=== PATIENT | male | born 1945 | race Caucasian/White ===

== ENCOUNTER 2016-12-31 05:46 | Inpatient (IN) | payer MEDICARE ==
[~2016-12-31] VITALS: Ht 177.8 cm; Wt 142.9 kg
[~2016-12-31 05:46] MED LIST: AMLO5TAB2 PO; ASPI-482 PO; ATOR20TA58 PO; BENA40TA2 PO; GLIM4TAB2 PO; METF500T4 PO
--- NOTE | 2016-12-31 06:10 | RAD ---
RS Compliance Statement: One or more of the following individualized dose reduction techniques were utilized for this examination: 1. Automated exposure control 2. Adjustment of the mA and/or kV according to patient size 3. Use of iterative reconstruction technique CT head without contrast 12/31/2016 5:52 AM INDICATION: Left-sided weakness. COMPARISON: CT head 12/29/2016 TECHNIQUE: Multiple axial CT images of the head were obtained from skull base through the vertex without intravenous contrast. FINDINGS: Head: Ventricles, sulci and basal cisterns are within normal limits. There is no hydrocephalus. Ch[place]-white matter differentiation is normal. There is no acute intracranial hemorrhage. There is no mass, mass effect or midline shift. Posterior fossa is normal in appearance. Visualized portions of the orbits are normal. Paranasal sinuses are well aerated. Mastoid air cells are well aerated. Scalp and calvaria are normal. IMPRESSION: No acute intracranial hemorrhage. Electronically signed by: Renea Haddad MD (12/31/2016 6:07 AM) [id number]
[2016-12-31 06:33] LABS: BASO # 0.1 x10^3/uL (0.0-0.2); BASO % 1 % (0-3); EOS % 5 % (0-3); HEMATOCRIT 48.1 % (39.0-53.0); HEMOGLOBIN 15.8 g/dL (13.0-17.5); LYMPH % 17 % (24-48); MEAN CORPUSCULAR HEMOGLOBIN 29 pg (25-35); MEAN CORPUSCULAR HGB CONC 33 g/dL (31-37); MEAN CORPUSCULAR VOLUME 88 fL (79-100); MONO % 8 % (0-9); NEUT % 70 % (31-73); PLATELET COUNT 334 x10^3/uL (140-400); RED BLOOD COUNT 5.46 x10^6/uL (4.30-5.70); RED CELL DISTRIBUTION WIDTH 13.5 % (11.5-14.5); WHITE BLOOD COUNT 11.9 x10^3/uL (4.0-11.0)
[2016-12-31 06:44] LABS: CALCIUM 9.4 mg/dL (8.5-10.1); CREATININE 1.1 mg/dL (0.7-1.3); GFR 65.6; POTASSIUM 3.9 mmol/L (3.5-5.1)
[2016-12-31 06:49] LABS: ALBUMIN 3.5 g/dL (3.4-5.0); ALBUMIN/GLOBULIN RATIO 0.8 (1.0-1.7); TOTAL BILIRUBIN 0.4 mg/dL (0.2-1.0); TOTAL PROTEIN 7.7 g/dL (6.4-8.2)
[2016-12-31 06:52] LABS: BILIRUBIN,URINE NEGATIVE (NEG); GLUCOSE,URINE NEGATIVE (NEG); NITRITE,URINE NEGATIVE (NEG); PROTEIN,URINE NEGATIVE (NEG-TRACE); UROBILINOGEN,URINE 0.2 mg/dL (0.2 mg/dL)
--- NOTE | 2016-12-31 06:55 | EKG ---
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
[2016-12-31] MEDS ORDERED: ASPIRIN CHEWABLE 81 MG TABLET. PO ONE (07:00)
[2016-12-31 07:01] LABS: WBC,URINE OCC /HPF (0-4)
[2016-12-31 07:01] LABS: INR 1.1 (0.8-1.1); PROTHROMBIN TIME PATIENT 13.1 SEC (11.7-14.0)
[2016-12-31 07:02] LABS: BACTERIA,URINE 0 /HPF (0-FEW); RBC,URINE 0 /HPF (0-2)
--- NOTE | 2016-12-31 07:04 | PHYS DOC ---
Past Medical History Past Medical History: Diabetes-Type II, Hypertension, TIA Past Surgical History: Hip Replacement Alcohol Use: None Drug Use: None Adult General Chief Complaint Chief Complaint: WEAKNESS/GENERALIZED HPI HPI Patient is a 71 year old male released from this hospital yesterday and diagnosed with CVA and carotid stenosis who presents with return of neurologic deficits. Patient states weakness of his left hand and leg on Saturday. While in ER those symptoms fully resolved. The patient was subsequently admitted to the hospital overnight and released yesterday. While hospital, patient had echocardiogram imaging of his carotid arteries which showed partial blockage. The patient states he normal and is overnight hospital stay and at time of discharge last evening. states he felt normal when going to bed at 2300 awoke with symptoms involving left hand and foot this morning. Symptoms are less severe than they were days ago. Patient last took aspirin 12 hours ago. No other acute symptoms or complaints. Review of Systems Review of Systems ROS as per HPI All other systems were reviewed and found to be within normal limits, except as documented in this note. Current Medications Current Medications Current Medications Medications (Trade) Dose Ordered Sig/Lily Start Time Stop Time Status Last Admin Dose Admin Aspirin (Children'S Aspirin) 162 mg 1X ONCE 12/31/16 07:00 12/31/16 07:01 Allergies Allergies Allergies Coded Allergies Type Severity Reaction Last Updated Verified No Known Drug Allergies 12/29/16 No Physical Exam Physical Exam Constitutional: Well developed, well nourished, no acute distress, non-toxic appearance. [] HENT: Normocephalic, atraumatic, bilateral external ears normal, oropharynx moist, no oral exudates, nose normal. [] Eyes: PERRLA, EOMI, conjunctiva normal, no discharge. [] Neck: Normal range of motion, no tenderness, supple, no stridor. [] Cardiovascular:Heart rate regular rhythm, no murmur [] Lungs & Thorax: Bilateral breath sounds clear to auscultation [] Abdomen: Bowel sounds normal, soft, no tenderness, no masses, no pulsatile masses. [] Skin: Warm, dry, no erythema, no rash. [] Back: No tenderness, no CVA tenderness. [] Extremities: No tenderness, no cyanosis, no clubbing, ROM intact, no edema. [] Neurologic: Alert and oriented X 3, CN 2-12 grossly intact, normal motor function, normal sensory function, no focal deficits noted. [] Psychologic: Affect normal, judgement normal, mood normal. [] Current Patient Data Vital Signs Vital Signs Date Time Temp Pulse Resp B/P (MAP) Pulse Ox O2 Delivery O2 Flow Rate FiO2 12/31/16 06:00 97.8 86 18 183/88 (119) 96 Room Air 97.8 Lab Values Laboratory Tests Test 12/31/16 06:15 White Blood Count 11.9 x10^3/uL (4.0-11.0) H Red Blood Count 5.46 x10^6/uL (4.30-5.70) Hemoglobin 15.8 g/dL (13.0-17.5) Hematocrit 48.1 % (39.0-53.0) Mean Corpuscular Volume 88 fL (79-100) Mean Corpuscular Hemoglobin 29 pg (25-35) Mean Corpuscular Hemoglobin Concent 33 g/dL (31-37) Red Cell Distribution Width 13.5 % (11.5-14.5) Platelet Count 334 x10^3/uL (140-400) Neutrophils (%) (Auto) 70 % (31-73) Lymphocytes (%) (Auto) 17 % (24-48) L Monocytes (%) (Auto) 8 % (0-9) Eosinophils (%) (Auto) 5 % (0-3) H Basophils (%) (Auto) 1 % (0-3) Neutrophils # (Auto) 8.3 x10^3uL (1.8-7.7) H Lymphocytes # (Auto) 2.0 x10^3/uL (1.0-4.8) Monocytes # (Auto) 1.0 x10^3/uL (0.0-1.1) Eosinophils # (Auto) 0.6 x10^3/uL (0.0-0.7) Basophils # (Auto) 0.1 x10^3/uL (0.0-0.2) Sodium Level 140 mmol/L (136-145) Potassium Level 3.9 mmol/L (3.5-5.1) Chloride Level 102 mmol/L (98-107) Carbon Dioxide Level 27 mmol/L (21-32) Anion Gap 11 (6-14) Blood Urea Nitrogen 15 mg/dL (8-26) Creatinine 1.1 mg/dL (0.7-1.3) Estimated GFR (Cockcroft-Gault) 65.6 BUN/Creatinine Ratio 14 (6-20) Glucose Level 159 mg/dL (70-99) H Calcium Level 9.4 mg/dL (8.5-10.1) Total Bilirubin Pending Aspartate Amino Transferase (AST) Pending Alanine Aminotransferase (ALT) Pending Alkaline Phosphatase Pending Total Protein Pending Albumin Pending Albumin/Globulin Ratio Pending Laboratory Tests 12/31/16 06:15 Laboratory Tests 12/31/16 06:15 EKG EKG [EKG: Sinus rhythm, occasional PVC, rate 83, no acute ST-T wave changes, QTC 445. Interpretation by me. ] Radiology/Procedures Radiology/Procedures [CT head: NAD per radiology report.] Course & Med Decision Making Course & Med Decision Making Pertinent Labs and Imaging studies reviewed. (See chart for details) [CT head nonacute. NIH stroke score of 0 on stroke assessment stroke assessment by ER nurse. patient mostly noticed loss of fine motor use of left hand and has difficulty picking up and holding objects in left hand. Aspirin given. Will admit. ] Dragon Disclaimer Dragon Disclaimer This electronic medical record was generated, in whole or in part, using a voice recognition dictation system. Departure Departure Impression: Primary Impression: CVA (cerebral vascular accident) Disposition: 09 ADMITTED INPATIENT Admitting Physician: Other (Dr. Campoverde) Condition: STABLE Referrals: LOS ROJAS (PCP) JACKSON LENZ DO Dec 31, 2016 07:04
[2016-12-31] MEDS ORDERED: ONDANSETRON PF 4 MG/2 ML VIAL. IV PRN (08:00)
[2016-12-31] MEDS: HEPARIN for IV BOLUS 10,000 UNIT/10 ML VIAL. IV PRN ×2 (08:08→23:56)
[2016-12-31] MEDS: HEPARIN 25,000UTS/500ML PREMIX 500 ML IV PRN (08:15)
[2016-12-31 10:00] VITALS: BP 178/87
[2016-12-31 11:00] VITALS: BP 163/85
[2016-12-31 14:30] VITALS: BP 181/94
--- NOTE | 2016-12-31 17:47 | PDOC2 ---
NEUROLOGY CONSULT Date of Admission Date of Admission DATE: 12/31/16 TIME: 17:26 Reason for Consult Reason for Consult: IMPRESSION: Left side weakness. Left side of face numbness. TIA. Carotid A stenosis, right side 75%. HTN HLD. No evidence of acute CVA this time. RECOMMENDATIONS/PLAN: Plavix 75 mg daily. Echo + bubble study. Fasting lipid panel in a.m Consulted Vascular Surgery for ICA stenosis. Discussed in detail with his family at bedside. HISTORY OF THE PRESENT ILLNESS: 71-y-old male patient with hx of HTN and HLD developed symptoms of left side weakness on 12/29/16. His symptoms then resolved. He came to the ER of [facility] and further evaluation revealed moderate to high grade of ICA stenosis. He had brief symptoms of left side numbness on 12/31/16 but resolved briefly. Past Medical History: Diabetes-Type II, Hypertension, TIA Past Surgical History: Hip Replacement ALLERGY: Reviewed. MEDICATIONS: Refer to MAR FAMILY HISTORY: Non contributory. SOCIAL HISTORY: Lives at home. Denies current smoking, drinking, and illicit drug use. REVIEW OF SYSTEMS: Constitutional: No malnutrition, weight loss, cachexia. Head: No traumatic brain or head injury. Skin: No edema, or rash. Ear: No infection. Eyes: No vision loss or color blindness. Nose: No bleeding or purulent discharges. Hearing: No hearing decrease. Neck: No injury. Cardiac: HTN, HLD. Pulmonary: No COPD. GI: No GI ulcer, GI bleeding. Urinary/genital: No dysuria, incontinence, urinary retention. Endocrinologic: No cousin face, craniofacial dysmorphism, polydactyly. Skeletomuscular: No muscular atrophy, deformity. Neurological: see HP. Psychiatric: Denies drug use/abuse. Otherwise, not [id number] review of systems. PHYSICAL EXAMINATION: General appearance is in subacute distress. HEENT: Normocephalic and nontraumatic. Eyes, nose, ears, and throat are unremarkable. Neck is supple. No lymphadenopathy. No crepitus. Cardiovascular: S1, S2, regular rate and rhythm. Pulmonary: Clear to auscultation bilaterally. Abdomen: Bowel sounds are positive. Abdomen is soft, nontender, and nondistended. Extremities: No rash, lesions, or edema. No restriction of range of motion NEUROLOGICAL EXAMINATION: Alert Oriented to time, place and person. PERRL. EOMI. CN: no focal findings. Muscle tone: within normal. Muscle strength: 5 DTR: 2 Plantar reflex: Flexor response bilaterally Gait: not examined in bed. Sensory exam: no abnormal findings. No cerebellar signs elicited. F-T-N test accurate. Current Medications Current Medications Current Medications Aspirin (Children'S Aspirin) 162 mg 1X ONCE PO Last administered on 06:52; Start 12/31/16 at 07:00; Stop 12/31/16 at 07:01; Status DC Ondansetron HCl (Zofran) 4 mg PRN Q8HRS PRN IV NAUSEA/VOMITING; Start at 08:00; Stop 01/01/17 at 07:59 Heparin Sodium/ Dextrose 500 ml @ 0 mls/hr CONT PRN IV SEE I/O RECORD Last administered on 12/31/16 08:15; Start 12/31/16 at 08:00 Heparin Sodium (Porcine) (Heparin Sodium) 3,650 unit PRN Q6HRS PRN IV FOR UFH LEVEL LESS THAN 0.2 Last administered on 12/31/16 08:08; Start 12/31/16 at 08 :00 Atorvastatin Calcium (Lipitor) 20 mg QHS PO ; Start 12/31/16 at 21:00 Active Scripts Active Aspir 81 (Aspirin) 81 Mg Tablet.dr 1 Tab PO DAILY Reported Metformin Hcl 500 Mg Tablet 500 Mg PO BIDWMEALS Glimepiride 4 Mg Tablet 1 Tab PO DAILY Benazepril Hcl 40 Mg Tablet 1 Tab PO DAILY Amlodipine Besylate 5 Mg Tablet 5 Mg PO DAILY Allergies Allergies: Coded Allergies: No Known Drug Allergies (Unverified , 12/29/16) Vitals VITALS Vital Signs Date Time Temp Pulse Resp B/P (MAP) Pulse Ox O2 Delivery O2 Flow Rate FiO2 12/31/16 14:30 97.4 86 20 181/94 (123) 95 Room Air 97.4 Labs Labs Laboratory Tests Test 12/31/16 06:15 12/31/16 06:37 12/31/16 13:50 White Blood Count 11.9 x10^3/uL (4.0-11.0) Red Blood Count 5.46 x10^6/uL (4.30-5.70) Hemoglobin 15.8 g/dL (13.0-17.5) Hematocrit 48.1 % (39.0-53.0) Mean Corpuscular Volume 88 fL (79-100) Mean Corpuscular Hemoglobin 29 pg (25-35) Mean Corpuscular Hemoglobin Concent 33 g/dL (31-37) Red Cell Distribution Width 13.5 % (11.5-14.5) Platelet Count 334 x10^3/uL (140-400) Neutrophils (%) (Auto) 70 % (31-73) Lymphocytes (%) (Auto) 17 % (24-48) Monocytes (%) (Auto) 8 % (0-9) Eosinophils (%) (Auto) 5 % (0-3) Basophils (%) (Auto) 1 % (0-3) Neutrophils # (Auto) 8.3 x10^3uL (1.8-7.7) Lymphocytes # (Auto) 2.0 x10^3/uL (1.0-4.8) Monocytes # (Auto) 1.0 x10^3/uL (0.0-1.1) Eosinophils # (Auto) 0.6 x10^3/uL (0.0-0.7) Basophils # (Auto) 0.1 x10^3/uL (0.0-0.2) Prothrombin Time 13.1 SEC (11.7-14.0) Prothromb Time International Ratio 1.1 (0.8-1.1) Activated Partial Thromboplast Time 29 SEC (24-38) Sodium Level 140 mmol/L (136-145) Potassium Level 3.9 mmol/L (3.5-5.1) Chloride Level 102 mmol/L (98-107) Carbon Dioxide Level 27 mmol/L (21-32) Anion Gap 11 (6-14) Blood Urea Nitrogen 15 mg/dL (8-26) Creatinine 1.1 mg/dL (0.7-1.3) Estimated GFR (Cockcroft-Gault) 65.6 BUN/Creatinine Ratio 14 (6-20) Glucose Level 159 mg/dL (70-99) Calcium Level 9.4 mg/dL (8.5-10.1) Total Bilirubin 0.4 mg/dL (0.2-1.0) Aspartate Amino Transf (AST/SGOT) 17 U/L (15-37) Alanine Aminotransferase (ALT/SGPT) 19 U/L (16-63) Alkaline Phosphatase 96 U/L (46-116) Troponin I Quantitative < 0.017 ng/mL (0.000-0.055) Total Protein 7.7 g/dL (6.4-8.2) Albumin 3.5 g/dL (3.4-5.0) Albumin/Globulin Ratio 0.8 (1.0-1.7) Thyroid Stimulating Hormone (TSH) 2.172 uIU/mL (0.358-3.74) Urine Collection Type Unknown Urine Color Yellow Urine Clarity Clear Urine pH 6.0 Urine Specific [place] 1.010 Urine Protein Negative mg/dL (NEG-TRACE) Urine Glucose (UA) Negative mg/dL (NEG) Urine Ketones (Stick) Negative mg/dL (NEG) Urine Blood Negative (NEG) Urine Nitrite Negative (NEG) Urine Bilirubin Negative (NEG) Urine Urobilinogen Dipstick 0.2 mg/dL (0.2 mg/dL) Urine Leukocyte Esterase Negative (NEG) Urine RBC 0 /HPF (0-2) Urine WBC Occ /HPF (0-4) Urine Bacteria 0 /HPF (0-FEW) Urine Mucus Mod /LPF Heparin Anti-Xa Act, Unfractionated 0.25 IU/mL (0.30-0.70) Laboratory Tests Test 12/31/16 06:15 12/31/16 06:37 12/31/16 13:50 White Blood Count 11.9 x10^3/uL (4.0-11.0) Red Blood Count 5.46 x10^6/uL (4.30-5.70) Hemoglobin 15.8 g/dL (13.0-17.5) Hematocrit 48.1 % (39.0-53.0) Mean Corpuscular Volume 88 fL (79-100) Mean Corpuscular Hemoglobin 29 pg (25-35) Mean Corpuscular Hemoglobin Concent 33 g/dL (31-37) Red Cell Distribution Width 13.5 % (11.5-14.5) Platelet Count 334 x10^3/uL (140-400) Neutrophils (%) (Auto) 70 % (31-73) Lymphocytes (%) (Auto) 17 % (24-48) Monocytes (%) (Auto) 8 % (0-9) Eosinophils (%) (Auto) 5 % (0-3) Basophils (%) (Auto) 1 % (0-3) Neutrophils # (Auto) 8.3 x10^3uL (1.8-7.7) Lymphocytes # (Auto) 2.0 x10^3/uL (1.0-4.8) Monocytes # (Auto) 1.0 x10^3/uL (0.0-1.1) Eosinophils # (Auto) 0.6 x10^3/uL (0.0-0.7) Basophils # (Auto) 0.1 x10^3/uL (0.0-0.2) Prothrombin Time 13.1 SEC (11.7-14.0) Prothromb Time International Ratio 1.1 (0.8-1.1) Activated Partial Thromboplast Time 29 SEC (24-38) Sodium Level 140 mmol/L (136-145) Potassium Level 3.9 mmol/L (3.5-5.1) Chloride Level 102 mmol/L (98-107) Carbon Dioxide Level 27 mmol/L (21-32) Anion Gap 11 (6-14) Blood Urea Nitrogen 15 mg/dL (8-26) Creatinine 1.1 mg/dL (0.7-1.3) Estimated GFR (Cockcroft-Gault) 65.6 BUN/Creatinine Ratio 14 (6-20) Glucose Level 159 mg/dL (70-99) Calcium Level 9.4 mg/dL (8.5-10.1) Total Bilirubin 0.4 mg/dL (0.2-1.0) Aspartate Amino Transf (AST/SGOT) 17 U/L (15-37) Alanine Aminotransferase (ALT/SGPT) 19 U/L (16-63) Alkaline Phosphatase 96 U/L (46-116) Troponin I Quantitative < 0.017 ng/mL (0.000-0.055) Total Protein 7.7 g/dL (6.4-8.2) Albumin 3.5 g/dL (3.4-5.0) Albumin/Globulin Ratio 0.8 (1.0-1.7) Thyroid Stimulating Hormone (TSH) 2.172 uIU/mL (0.358-3.74) Urine Collection Type Unknown Urine Color Yellow Urine Clarity Clear Urine pH 6.0 Urine Specific [place] 1.010 Urine Protein Negative mg/dL (NEG-TRACE) Urine Glucose (UA) Negative mg/dL (NEG) Urine Ketones (Stick) Negative mg/dL (NEG) Urine Blood Negative (NEG) Urine Nitrite Negative (NEG) Urine Bilirubin Negative (NEG) Urine Urobilinogen Dipstick 0.2 mg/dL (0.2 mg/dL) Urine Leukocyte Esterase Negative (NEG) Urine RBC 0 /HPF (0-2) Urine WBC Occ /HPF (0-4) Urine Bacteria 0 /HPF (0-FEW) Urine Mucus Mod /LPF Heparin Anti-Xa Act, Unfractionated 0.25 IU/mL (0.30-0.70) SHANA LIMON MD Dec 31, 2016 17:47
[2016-12-31] MEDS: CLOPIDOGREL BISULFATE 75 MG TABLET PO SCH (18:00)
[2016-12-31] MEDS ORDERED: DEXTROSE 50% 25 GM / 50ML DISP.SYRIN. IV PRN (18:45)
--- NOTE | 2016-12-31 18:52 | HP ---
ADMIT DATE: 12/31/2016 CHIEF COMPLAINT: Left arm weakness. HISTORY OF PRESENT ILLNESS: The patient is a massively obese 71-year-old gentleman with past medical history of hypertension, hyperlipidemia as well as TIA symptoms for which he had been admitted on 12/29/2016. The symptoms spontaneously resolved and he was discharged just yesterday only for the symptoms to return today and he returned to the hospital. He had been seen by Dr. Tubbs during his previous hospitalization and was about to get scheduled for a CEA due to carotid artery stenosis on the right at 75%. PAST MEDICAL HISTORY: TIA, hypertension, hyperlipidemia, diabetes mellitus, morbid obesity. FAMILY HISTORY: No disorders known. SOCIAL HISTORY: He is , living with his . Denies any toxic habits. ALLERGIES: No known drug allergies. MEDICATIONS: MAR reconciled with home medications. REVIEW OF SYSTEMS: His arm weakness has mostly resolved. 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 Strength is restored. He denies any other symptoms at this time. PHYSICAL EXAMINATION: VITAL SIGNS: From today show a blood pressure of 178/87, heart rate of 71, respiratory rate at 19. He is afebrile. GENERAL: This is a massively obese 71-year-old gentleman, awake, alert, in no acute distress. HEENT: Shows no scleral icterus. NECK: Supple. LUNGS: Clear. HEART: Regular rate and rhythm. ABDOMEN: Obese, positive bowel sounds. EXTREMITIES: Show no edema. SKIN: Warm, soft and dry. NEUROLOGIC: He has 5/5 strength in both upper extremities. Sensation to soft touch is intact. LABORATORY DATA: CBC with a WBC of 11.9, hemoglobin 15.8 with a platelet count of 334. Chemistries with a BUN and creatinine of 15 and 1.1, normal electrolytes, normal LFTs, normal CK. Albumin at 3.5 and glucose at 159. IMAGING: CT of the head obtained in the Emergency Room shows no acute intracranial hemorrhage. ASSESSMENT AND PLAN: The patient is a 71-year-old gentleman with recurrent transient ischemic attack symptoms in the left arm. He has been started on heparin drip for the time being. Neurology has been consulted as well as Vascular Surgery, Dr. Tubbs, who had seen him during his previous hospitalization. We will continue home medications for the time being, add insulin sliding scale to his diabetic regimen. Blood pressure currently is very poorly controlled. We will add hydralazine IV p.r.n. for the time being to his home regimen. JOELLE DEMARCO MD DR: UR/nts JOB#: [id number] / [id number] BIANCA
[2016-12-31 19:00] VITALS: BP 188/88
--- NOTE | 2016-12-31 19:55 | PDOC ---
SURGICAL PROGRESS NOTE Subjective pt had second episode of left hand discoordination at 5 am today prompting readmission. Strength is good but dexterity not normal Vital Signs Vital Signs Date Time Temp Pulse Resp B/P (MAP) Pulse Ox O2 Delivery O2 Flow Rate FiO2 12/31/16 14:30 97.4 86 20 181/94 (123) 95 Room Air 97.4 Neuro: Other (equal printing estimator strength, some impairment of dexterity) Labs Laboratory Tests Test 12/31/16 06:15 12/31/16 06:37 12/31/16 13:50 White Blood Count 11.9 x10^3/uL (4.0-11.0) Red Blood Count 5.46 x10^6/uL (4.30-5.70) Hemoglobin 15.8 g/dL (13.0-17.5) Hematocrit 48.1 % (39.0-53.0) Mean Corpuscular Volume 88 fL (79-100) Mean Corpuscular Hemoglobin 29 pg (25-35) Mean Corpuscular Hemoglobin Concent 33 g/dL (31-37) Red Cell Distribution Width 13.5 % (11.5-14.5) Platelet Count 334 x10^3/uL (140-400) Neutrophils (%) (Auto) 70 % (31-73) Lymphocytes (%) (Auto) 17 % (24-48) Monocytes (%) (Auto) 8 % (0-9) Eosinophils (%) (Auto) 5 % (0-3) Basophils (%) (Auto) 1 % (0-3) Neutrophils # (Auto) 8.3 x10^3uL (1.8-7.7) Lymphocytes # (Auto) 2.0 x10^3/uL (1.0-4.8) Monocytes # (Auto) 1.0 x10^3/uL (0.0-1.1) Eosinophils # (Auto) 0.6 x10^3/uL (0.0-0.7) Basophils # (Auto) 0.1 x10^3/uL (0.0-0.2) Prothrombin Time 13.1 SEC (11.7-14.0) Prothromb Time International Ratio 1.1 (0.8-1.1) Activated Partial Thromboplast Time 29 SEC (24-38) Sodium Level 140 mmol/L (136-145) Potassium Level 3.9 mmol/L (3.5-5.1) Chloride Level 102 mmol/L (98-107) Carbon Dioxide Level 27 mmol/L (21-32) Anion Gap 11 (6-14) Blood Urea Nitrogen 15 mg/dL (8-26) Creatinine 1.1 mg/dL (0.7-1.3) Estimated GFR (Cockcroft-Gault) 65.6 BUN/Creatinine Ratio 14 (6-20) Glucose Level 159 mg/dL (70-99) Calcium Level 9.4 mg/dL (8.5-10.1) Total Bilirubin 0.4 mg/dL (0.2-1.0) Aspartate Amino Transf (AST/SGOT) 17 U/L (15-37) Alanine Aminotransferase (ALT/SGPT) 19 U/L (16-63) Alkaline Phosphatase 96 U/L (46-116) Troponin I Quantitative < 0.017 ng/mL (0.000-0.055) Total Protein 7.7 g/dL (6.4-8.2) Albumin 3.5 g/dL (3.4-5.0) Albumin/Globulin Ratio 0.8 (1.0-1.7) Thyroid Stimulating Hormone (TSH) 2.172 uIU/mL (0.358-3.74) Urine Collection Type Unknown Urine Color Yellow Urine Clarity Clear Urine pH 6.0 Urine Specific [place] 1.010 Urine Protein Negative mg/dL (NEG-TRACE) Urine Glucose (UA) Negative mg/dL (NEG) Urine Ketones (Stick) Negative mg/dL (NEG) Urine Blood Negative (NEG) Urine Nitrite Negative (NEG) Urine Bilirubin Negative (NEG) Urine Urobilinogen Dipstick 0.2 mg/dL (0.2 mg/dL) Urine Leukocyte Esterase Negative (NEG) Urine RBC 0 /HPF (0-2) Urine WBC Occ /HPF (0-4) Urine Bacteria 0 /HPF (0-FEW) Urine Mucus Mod /LPF Heparin Anti-Xa Act, Unfractionated 0.25 IU/mL (0.30-0.70) Laboratory Tests Test 12/31/16 06:15 12/31/16 06:37 12/31/16 13:50 White Blood Count 11.9 x10^3/uL (4.0-11.0) Red Blood Count 5.46 x10^6/uL (4.30-5.70) Hemoglobin 15.8 g/dL (13.0-17.5) Hematocrit 48.1 % (39.0-53.0) Mean Corpuscular Volume 88 fL (79-100) Mean Corpuscular Hemoglobin 29 pg (25-35) Mean Corpuscular Hemoglobin Concent 33 g/dL (31-37) Red Cell Distribution Width 13.5 % (11.5-14.5) Platelet Count 334 x10^3/uL (140-400) Neutrophils (%) (Auto) 70 % (31-73) Lymphocytes (%) (Auto) 17 % (24-48) Monocytes (%) (Auto) 8 % (0-9) Eosinophils (%) (Auto) 5 % (0-3) Basophils (%) (Auto) 1 % (0-3) Neutrophils # (Auto) 8.3 x10^3uL (1.8-7.7) Lymphocytes # (Auto) 2.0 x10^3/uL (1.0-4.8) Monocytes # (Auto) 1.0 x10^3/uL (0.0-1.1) Eosinophils # (Auto) 0.6 x10^3/uL (0.0-0.7) Basophils # (Auto) 0.1 x10^3/uL (0.0-0.2) Prothrombin Time 13.1 SEC (11.7-14.0) Prothromb Time International Ratio 1.1 (0.8-1.1) Activated Partial Thromboplast Time 29 SEC (24-38) Sodium Level 140 mmol/L (136-145) Potassium Level 3.9 mmol/L (3.5-5.1) Chloride Level 102 mmol/L (98-107) Carbon Dioxide Level 27 mmol/L (21-32) Anion Gap 11 (6-14) Blood Urea Nitrogen 15 mg/dL (8-26) Creatinine 1.1 mg/dL (0.7-1.3) Estimated GFR (Cockcroft-Gault) 65.6 BUN/Creatinine Ratio 14 (6-20) Glucose Level 159 mg/dL (70-99) Calcium Level 9.4 mg/dL (8.5-10.1) Total Bilirubin 0.4 mg/dL (0.2-1.0) Aspartate Amino Transf (AST/SGOT) 17 U/L (15-37) Alanine Aminotransferase (ALT/SGPT) 19 U/L (16-63) Alkaline Phosphatase 96 U/L (46-116) Troponin I Quantitative < 0.017 ng/mL (0.000-0.055) Total Protein 7.7 g/dL (6.4-8.2) Albumin 3.5 g/dL (3.4-5.0) Albumin/Globulin Ratio 0.8 (1.0-1.7) Thyroid Stimulating Hormone (TSH) 2.172 uIU/mL (0.358-3.74) Urine Collection Type Unknown Urine Color Yellow Urine Clarity Clear Urine pH 6.0 Urine Specific [place] 1.010 Urine Protein Negative mg/dL (NEG-TRACE) Urine Glucose (UA) Negative mg/dL (NEG) Urine Ketones (Stick) Negative mg/dL (NEG) Urine Blood Negative (NEG) Urine Nitrite Negative (NEG) Urine Bilirubin Negative (NEG) Urine Urobilinogen Dipstick 0.2 mg/dL (0.2 mg/dL) Urine Leukocyte Esterase Negative (NEG) Urine RBC 0 /HPF (0-2) Urine WBC Occ /HPF (0-4) Urine Bacteria 0 /HPF (0-FEW) Urine Mucus Mod /LPF Heparin Anti-Xa Act, Unfractionated 0.25 IU/mL (0.30-0.70) I have reviewed the following prior tests reviewed. Pt has >70% right ICA stenosis Assessment/Plan Imp: 1. possible minor right hemisphere stroke with mild deficit left hand 2. right carotid stenosis, >70% 3. obesity Rec: check MRI 2. schedule right carotid endarterectomy for tomorrow. (was scheduled for Saturday) He will be added on to the schedule. Problems: EVERETTE QUEEN II, MD Dec 31, 2016 19:55
[2016-12-31] MEDS: ATORVASTATIN CALCIUM 20 MG TABLET PO SCH (21:52)
[2016-12-31] MEDS: hydrALAZINE 20 MG/ML VIAL. IVP PRN (21:53)
[2016-12-31 23:52] VITALS: BP 170/75
[2017-01-01] MEDS: HEPARIN 25,000UTS/500ML PREMIX 500 ML IV PRN ×2 (02:53→17:34)
[2017-01-01 03:00] VITALS: BP 144/77
[2017-01-01 06:06] LABS: BASO # 0.1 x10^3/uL (0.0-0.2); BASO % 1 % (0-3); EOS % 4 % (0-3); HEMATOCRIT 46.4 % (39.0-53.0); HEMOGLOBIN 15.5 g/dL (13.0-17.5); LYMPH # 2.4 x10^3/uL (1.0-4.8); LYMPH % 23 % (24-48); MEAN CORPUSCULAR HEMOGLOBIN 29 pg (25-35); MEAN CORPUSCULAR HGB CONC 33 g/dL (31-37); MEAN CORPUSCULAR VOLUME 88 fL (79-100); MONO % 10 % (0-9); NEUT % 62 % (31-73); PLATELET COUNT 324 x10^3/uL (140-400); RED BLOOD COUNT 5.25 x10^6/uL (4.30-5.70); RED CELL DISTRIBUTION WIDTH 13.8 % (11.5-14.5); WHITE BLOOD COUNT 10.7 x10^3/uL (4.0-11.0)
[2017-01-01 06:10] LABS: CALCIUM 9.3 mg/dL (8.5-10.1); CREATININE 1.1 mg/dL (0.7-1.3); GFR 65.6; POTASSIUM 3.6 mmol/L (3.5-5.1)
[2017-01-01 06:27] LABS: CHOLESTEROL/HDL RATIO 3.9
[2017-01-01 07:00] VITALS: BP 174/80
[2017-01-01] MEDS: metFORMIN 500 MG TABLET PO SCH ×2 (08:00→17:25)
[2017-01-01] MEDS: CLOPIDOGREL BISULFATE 75 MG TABLET PO SCH (08:00)
[2017-01-01] MEDS: INSULIN ASPART 300 UNITS/3 ML INSULN.PEN SQ SCH ×3 (08:00→17:00)
[2017-01-01] MEDS: GLIMEPIRIDE 2 MG TABLET. PO SCH (09:00)
[2017-01-01] MEDS ORDERED: amLODIPine BESYLATE 5 MG TABLET PO SCH (09:00)
[2017-01-01] MEDS: LISINOPRIL 40 MG TABLET. PO SCH (09:00)
[2017-01-01] MEDS ORDERED: HEPARIN SODIUM 5,000 UNIT in IV RINGERS,LACTATED 500ML 500 ML IRR ONE (10:00)
[2017-01-01] MEDS ORDERED: LIDOCAINE 1% PF 48 ML, SODIUM BICARBONATE VIAL 12 MEQ in TOTAL VOLUME SYRINGE 0 ML ID ONE (10:00)
--- NOTE | 2017-01-01 10:59 | PDOC ---
PROGRESS NOTES Chief Complaint Chief Complaint Recurrent L arm weakness ASSESSMENT AND PLAN: 1. TIA/CVA: recurrent sx on added ASA. MRI with small, acute CVA in R posterior basal ganglia. remains on heparin for now, cont other 2ary prevention meds. will need complete W/U for CVA 2. Carotid artery stenosis: plan for CEA postponed in face of acute CVA 3. DM2: well controlled on home regimen, ISS 4. HTN: poorly controlled on lisinopril and norvasc. add BB - postpone til after surgery. hydralazine PRN History of Present Illness History of Present Illness fine motor weakness in L hand persisting Vitals Vitals Vital Signs Date Time Temp Pulse Resp B/P (MAP) Pulse Ox O2 Delivery O2 Flow Rate FiO2 01/01/17 09:00 78 174/80 01/01/17 08:00 Room Air 01/01/17 07:00 97.7 20 94 97.7 Physical Exam General: Alert, Oriented X3, Cooperative, No acute distress Heart: Regular rate Lungs: Clear Abdomen: Normal bowel sounds, No tenderness, Other (obese) Extremities: No edema Skin: No rashes Labs LABS Laboratory Tests Test 12/31/16 13:50 12/31/16 20:10 12/31/16 21:50 01/01/17 05:30 Heparin Anti-Xa Act, Unfractionated 0.25 IU/mL (0.30-0.70) 0.13 IU/mL (0.30-0.70) 0.29 IU/mL (0.30-0.70) Glucose (Fingerstick) 155 mg/dL (70-99) White Blood Count 10.7 x10^3/uL (4.0-11.0) Red Blood Count 5.25 x10^6/uL (4.30-5.70) Hemoglobin 15.5 g/dL (13.0-17.5) Hematocrit 46.4 % (39.0-53.0) Mean Corpuscular Volume 88 fL (79-100) Mean Corpuscular Hemoglobin 29 pg (25-35) Mean Corpuscular Hemoglobin Concent 33 g/dL (31-37) Red Cell Distribution Width 13.8 % (11.5-14.5) Platelet Count 324 x10^3/uL (140-400) Neutrophils (%) (Auto) 62 % (31-73) Lymphocytes (%) (Auto) 23 % (24-48) Monocytes (%) (Auto) 10 % (0-9) Eosinophils (%) (Auto) 4 % (0-3) Basophils (%) (Auto) 1 % (0-3) Neutrophils # (Auto) 6.7 x10^3uL (1.8-7.7) Lymphocytes # (Auto) 2.4 x10^3/uL (1.0-4.8) Monocytes # (Auto) 1.0 x10^3/uL (0.0-1.1) Eosinophils # (Auto) 0.5 x10^3/uL (0.0-0.7) Basophils # (Auto) 0.1 x10^3/uL (0.0-0.2) Sodium Level 140 mmol/L (136-145) Potassium Level 3.6 mmol/L (3.5-5.1) Chloride Level 103 mmol/L (98-107) Carbon Dioxide Level 28 mmol/L (21-32) Anion Gap 9 (6-14) Blood Urea Nitrogen 14 mg/dL (8-26) Creatinine 1.1 mg/dL (0.7-1.3) Estimated GFR (Cockcroft-Gault) 65.6 Glucose Level 162 mg/dL (70-99) Calcium Level 9.3 mg/dL (8.5-10.1) Triglycerides Level 91 mg/dL (0-150) Cholesterol Level 174 mg/dL (0-200) LDL Cholesterol, Calculated 111 mg/dL (0-100) VLDL Cholesterol, Calculated 18 mg/dL (0-40) Non-HDL Cholesterol Calculated 129 mg/dL (0-129) HDL Cholesterol 45 mg/dL (40-60) Cholesterol/HDL Ratio 3.9 JOELLE DEMARCO MD Jan 01, 2017 10:59
[2017-01-01 11:00] VITALS: BP 168/79
[2017-01-01] MEDS: METOPROLOL TART IMMED RELEASE 25 MG TABLET. PO SCH ×2 (11:00→20:18)
[2017-01-01] MEDS: hydrALAZINE 20 MG/ML VIAL. IVP PRN (11:25)
--- NOTE | 2017-01-01 13:23 | RAD ---
MRI Brain without contrast History: New stroke symptoms with left-sided weakness Technique: Multiplanar, multisequential noncontrast MR imaging was performed of the brain. Contrast: None Comparison: December 30, 2016 Findings: There has been development of approximate 1.8 cm AP by 1.3 cm transverse focus of restricted diffusion involving the posterior right basal ganglia extending to the margin of the right lateral ventricle. There is corresponding mild T2 and FLAIR hyperintense signal. There is no hemosiderin deposition of the brain parenchyma. There are again several other scattered tiny foci of T2 and FLAIR hyperintense abnormality of the supratentorial white matter bilaterally. There is preservation of the major arterial intracranial flow voids at the skull base. There is patchy mild ethmoid air cell mucosal thickening, negligible patchy right frontal sinus mucosal thickening. Impression: 1. There is new small acute infarct of the posterior right basal ganglia extending to the margin of the right lateral ventricle. 2. Other minimal T2 and FLAIR hyperintense abnormality of the supratentorial white matter is nonspecific, probably due to chronic microvascular ischemic disease. FOR INTERNAL CODING PURPOSES Critical result: Findings discussed with Dr. Mahoney at 01/01/2017 1:18 PM. RESULT CODE: (C) Electronically signed by: René Church MD (01/01/2017 1:20 PM) [id number]
[2017-01-01] MEDS ORDERED: IV RINGERS,LACTATED 1000ML 1,000 ML IV SCH (14:27)
[2017-01-01] MEDS ORDERED: LIDOCAINE 1% PF 2 ML VIAL. ID PRN (14:30)
[2017-01-01] MEDS ORDERED: HYDROmorphone 2 MG/ML VIAL IV PRN (14:30)
[2017-01-01] MEDS ORDERED: MORPHINE SULFATE 4 MG/ML DISP.SYRIN. IV PRN (14:30)
[2017-01-01] MEDS ORDERED: MORPHINE SULFATE 2 MG/ML DISP.SYRIN. IV PRN (14:30)
[2017-01-01] MEDS ORDERED: fentaNYL PF VIAL 100 MCG/2 ML VIAL IV PRN ×2 (14:30)
[2017-01-01] MEDS ORDERED: PROCHLORPERAZINE 10 MG/2 ML VIAL. IV PRN (14:30)
[2017-01-01] MEDS ORDERED: ONDANSETRON PF 4 MG/2 ML VIAL. IV PRN (14:30)
[2017-01-01 15:00] VITALS: BP 156/85
--- NOTE | 2017-01-01 17:16 | RAD ---
Carotid ultrasound, 01/01/2017: History: Right carotid stenosis Duplex evaluation of the main renal arteries was performed including grayscale, color-flow and spectral Doppler analysis. There is mild atherosclerotic plaquing at the carotid bifurcations, right greater than left. The right plaques are partially calcified. The internal carotid arteries are tortuous. The peak systolic velocity in the right internal carotid artery is 80 cm per sec with an end-diastolic velocity of 20 cm/s. The internal carotid to common carotid artery ratio is 0.74. The Doppler findings suggest narrowing in the 0-50% diameter range. On the left, the peak systolic velocity in the internal carotid artery is 76 cm/s with an end-diastolic velocity of 18 cm/s. The internal carotid to common carotid artery ratio is 1.2. These Doppler findings also indicate narrowing in the 0-50% diameter range. Antegrade flow is present in both vertebral arteries in the neck. IMPRESSION: Mild atherosclerotic plaquing at both carotid bifurcations with underlying luminal narrowing in the proximal internal carotid arteries in the 0-50% diameter range bilaterally. Note: Stenosis calculations for CTA, MRA and conventional angiography are based upon determination of the distal ICA diameter in accordance with the NASCET methodology. Stenosis calculations for Doppler studies are derived from validated velocity criteria which are known to correlate with NASCET methodology of determining stenosis.
--- NOTE | 2017-01-01 17:33 | PDOC ---
PROGRESS NOTES Assessment Assessment Acute small right posterior BG infract. Left side weakness x 2 days before admission. Left side of face numbness x 2 days. TIA.recently. Carotid A stenosis, right side 75%. HTN HLD. Cellulitis, LE. Obesity. RECOMMENDATIONS/PLAN: Plavix 75 mg daily. Continue Lipitor HS. Echo + bubble study. He is currently on IV Heparin gtt. Consulted Vascular Surgery; carotid A endarterectomy in 2-3 days is reasonable. Discussed in detail with his family at bedside. HISTORY OF THE PRESENT ILLNESS: 71-y-old male patient with hx of HTN and HLD developed symptoms of left side weakness on 12/29/16 and he received stroke evaluation. His brain MRI on was negative. His symptoms were resolved, but he was found to have carotid A stenosis 50-75% on the right side more than the left side. He developed symptoms of left side weakness maybe in PM of 12/30/16 lasted to the next morning to come to the ER of [facility]. His symptoms resolved in the ER when he was seen, but he was still hospitalized for the concerns of carotid A stenosis. Repeated brain MRI on 01/01/17 showed above infarct. Currently, no stroke guidelines regarding time frame of acute endarterectomy. Carotid A endarterectomy in a couple days is reasonable. Past Medical History: Diabetes-Type II, Hypertension, TIA Past Surgical History: Hip Replacement ALLERGY: Reviewed. MEDICATIONS: Refer to [facility] FAMILY HISTORY: Non contributory. SOCIAL HISTORY: Lives at home. Denies current smoking, drinking, and illicit drug use. REVIEW OF SYSTEMS: Constitutional: No malnutrition, weight loss, cachexia. Head: No traumatic brain or head injury. Skin: No edema, or rash. Ear: No infection. Eyes: No vision loss or color blindness. Nose: No bleeding or purulent discharges. Hearing: No hearing decrease. Neck: No injury. Cardiac: HTN, HLD. Pulmonary: No COPD. GI: No GI ulcer, GI bleeding. Urinary/genital: No dysuria, incontinence, urinary retention. Endocrinologic: No cousin face, craniofacial dysmorphism, polydactyly. Skeletomuscular: No muscular atrophy, deformity. Neurological: see HP. Psychiatric: Denies drug use/abuse. Otherwise, not [id number] review of systems. PHYSICAL EXAMINATION: General appearance is in subacute distress. HEENT: Normocephalic and nontraumatic. Eyes, nose, ears, and throat are unremarkable. Neck is supple. No lymphadenopathy. No crepitus. Cardiovascular: S1, S2, regular rate and rhythm. Pulmonary: Clear to auscultation bilaterally. Abdomen: Bowel sounds are positive. Abdomen is soft, nontender, and nondistended. Extremities: No rash, lesions, or edema. No restriction of range of motion NEUROLOGICAL EXAMINATION: Alert Oriented to time, place and person. PERRL. EOMI. CN: no focal findings. Muscle tone: within normal. Muscle strength: 5 DTR: 2 Plantar reflex: Flexor response bilaterally Gait: not examined in bed. Sensory exam: no abnormal findings. No cerebellar signs elicited. F-T-N test fine. Objective Objective Vital Signs Date Time Temp Pulse Resp B/P (MAP) Pulse Ox O2 Delivery O2 Flow Rate FiO2 01/01/17 15:00 97.9 88 20 156/85 (108) 92 Room Air 97.9 Intake and Output 01/01/17 07:00 Intake Total 650 ml Output Total 450 ml Balance 200 ml Intake Oral 650 ml Output Urine Total 450 ml # Voids 2 Vitals Signs Vitals VS - Last 72 Hours, by Label Date Time Temp Pulse Resp B/P (MAP) Pulse Ox O2 Delivery O2 Flow Rate FiO2 01/01/17 15:00 97.9 88 20 156/85 (108) 92 Room Air 97.9 01/01/17 11:25 78 174/80 01/01/17 11:00 97.6 68 20 168/79 (108) 94 Room Air 97.6 01/01/17 09:00 78 174/80 01/01/17 09:00 78 174/80 01/01/17 08:00 Room Air 01/01/17 07:00 97.7 78 20 174/80 (111) 94 Room Air 97.7 01/01/17 03:00 97.6 70 18 144/77 (99) 94 Room Air 97.6 12/31/16 23:52 97.9 73 18 170/75 (106) 96 Room Air 97.9 12/31/16 21:53 72 185/83 12/31/16 20:00 Room Air 12/31/16 19:00 97.8 74 18 188/88 (121) 95 Room Air 97.8 12/31/16 14:30 97.4 86 20 181/94 (123) 95 Room Air 97.4 12/31/16 11:00 98.1 72 20 163/85 (111) 97 Room Air 98.1 12/31/16 10:42 Room Air 12/31/16 10:00 98.2 71 19 178/87 (117) 93 Room Air 98.2 12/31/16 07:07 73 18 175/82 (113) 96 Laboratory Laboratory Laboratory Tests Test 12/31/16 20:10 12/31/16 21:50 01/01/17 05:30 01/01/17 11:56 Heparin Anti-Xa Act, Unfractionated 0.13 IU/mL (0.30-0.70) 0.29 IU/mL (0.30-0.70) Glucose (Fingerstick) 155 mg/dL (70-99) 169 mg/dL (70-99) White Blood Count 10.7 x10^3/uL (4.0-11.0) Red Blood Count 5.25 x10^6/uL (4.30-5.70) Hemoglobin 15.5 g/dL (13.0-17.5) Hematocrit 46.4 % (39.0-53.0) Mean Corpuscular Volume 88 fL (79-100) Mean Corpuscular Hemoglobin 29 pg (25-35) Mean Corpuscular Hemoglobin Concent 33 g/dL (31-37) Red Cell Distribution Width 13.8 % (11.5-14.5) Platelet Count 324 x10^3/uL (140-400) Neutrophils (%) (Auto) 62 % (31-73) Lymphocytes (%) (Auto) 23 % (24-48) Monocytes (%) (Auto) 10 % (0-9) Eosinophils (%) (Auto) 4 % (0-3) Basophils (%) (Auto) 1 % (0-3) Neutrophils # (Auto) 6.7 x10^3uL (1.8-7.7) Lymphocytes # (Auto) 2.4 x10^3/uL (1.0-4.8) Monocytes # (Auto) 1.0 x10^3/uL (0.0-1.1) Eosinophils # (Auto) 0.5 x10^3/uL (0.0-0.7) Basophils # (Auto) 0.1 x10^3/uL (0.0-0.2) Sodium Level 140 mmol/L (136-145) Potassium Level 3.6 mmol/L (3.5-5.1) Chloride Level 103 mmol/L (98-107) Carbon Dioxide Level 28 mmol/L (21-32) Anion Gap 9 (6-14) Blood Urea Nitrogen 14 mg/dL (8-26) Creatinine 1.1 mg/dL (0.7-1.3) Estimated GFR (Cockcroft-Gault) 65.6 Glucose Level 162 mg/dL (70-99) Calcium Level 9.3 mg/dL (8.5-10.1) Triglycerides Level 91 mg/dL (0-150) Cholesterol Level 174 mg/dL (0-200) LDL Cholesterol, Calculated 111 mg/dL (0-100) VLDL Cholesterol, Calculated 18 mg/dL (0-40) Non-HDL Cholesterol Calculated 129 mg/dL (0-129) HDL Cholesterol 45 mg/dL (40-60) Cholesterol/HDL Ratio 3.9 Test 01/01/17 13:24 Heparin Anti-Xa Act, Unfractionated 0.10 IU/mL (0.30-0.70) Microbiology 12/31/16 Blood Culture - Preliminary, Resulted NO GROWTH AFTER 1 DAY Medication Medications Current Medications Amlodipine Besylate (Norvasc) 5 mg DAILY PO ; Start 01/01/17 at 09:00 Atorvastatin Calcium (Lipitor) 20 mg QHS PO Last administered on 12/31/16t 21: 52; Start 12/31/16 at 21:00 Cefazolin Sodium 1 gm/Sodium Chloride 500 ml @ 500 mls/hr 1X PERIOP ONCE IRR ; Start 01/01/17 at 10:00; Stop 01/01/17 at 10:59; Status DC Cefazolin Sodium/ Dextrose 50 ml @ 100 mls/hr 1X PREOP PRN IV PREOP; Start at 06:00; Stop 01/02/17 at 18:00 Clopidogrel Bisulfate (Plavix) 75 mg DAILYWBKFT PO ; Start 12/31/16 at 18:00 Dextrose (Dextrose 50%-Water Syringe) 12.5 gm PRN Q15MIN PRN IV SEE COMMENTS; Start 12/31/16 at 18:45 Fentanyl Citrate (Fentanyl 2ml Vial) 25 mcg PRN Q5MIN PRN IV MILD PAIN; Start 01/01/17 at 14:30; Stop 01/02/17 at 14:29 Fentanyl Citrate (Fentanyl 2ml Vial) 50 mcg PRN Q5MIN PRN IV MODERATE PAIN; Start 01/01/17 at 14:30; Stop 01/02/17 at 14:29 Glimepiride (Amaryl) 4 mg DAILY PO ; Start 01/01/17 at 09:00 Heparin Sodium (Porcine) 5000 unit/Ringer's Solution 505 ml @ 505 mls/hr 1X PERIOP ONCE IRR ; Start 01/01/17 at 10:00; Stop 01/01/17 at 10:59; Status DC Hydralazine HCl (Apresoline Inj) 10 mg PRN Q4HRS PRN IVP SBP >150 Last administered on 01/01/17t 11:25; Start 12/31/16 at 18:45 Hydromorphone HCl (Dilaudid) 0.5 mg PRN Q10MIN PRN IV SEV PAIN, Second choice; Start 01/01/17 at 14:30; Stop 01/02/17 at 14:29 Insulin Aspart (NovoLOG) 0-5 UNITS TIDWMEALS SQ ; Start 01/01/17 at 08:00 Lidocaine HCl (Xylocaine-Mpf 1% Vial) 2 ml 1X PRN PRN ID IV START; Start 01/01 at 14:30; Stop 01/02/17 at 14:29 Lidocaine HCl 48 ml/Sodium Bicarbonate 12 meq/Miscellaneous 60 ml @ 60 mls/hr 1X PERIOP ONCE ID ; Start 01/01/17 at 10:00; Stop 01/01/17 at 10:59; Status DC Lisinopril (Prinivil) 40 mg DAILY PO ; Start 01/01/17 at 09:00 Metformin HCl (Glucophage) 500 mg BIDWMEALS PO ; Start 01/01/17 at 08:00 Metoprolol Tartrate (Lopressor) 25 mg BID PO ; Start 01/01/17 at 11:00 Morphine Sulfate 1 mg PRN Q10MIN PRN IV SEVERE PAIN; Start 01/01/17 at 14:30; Stop 01/01/17 at 14:30; Status DC Morphine Sulfate 1 mg PRN Q10MIN PRN IV SEVERE PAIN; Start 01/01/17 at 14:30; Stop 01/02/17 at 14:29 Ondansetron HCl (Zofran) 4 mg PRN Q6HRS PRN IV NAUSEA/VOMITING; Start at 14:30; Stop 01/02/17 at 14:29 Prochlorperazine Edisylate (Compazine) 5 mg PACU PRN PRN IV NAUSEA, MRX1; Start 01/01/17 at 14:30; Stop 01/02/17 at 14:29 Ringer's Solution 1,000 ml @ 30 mls/hr Q24H IV ; Start 01/01/17 at 14:27; Stop 01/02/17 at 02:26 Comment Review of Relevant I have reviewed the following items michaela (where applicable) has been applied. SHANA LIMON MD Jan 01, 2017 17:33
[2017-01-01 19:00] VITALS: BP 158/68
--- NOTE | 2017-01-01 19:44 | PDOC ---
PROGRESS NOTES Assessment Assessment Acute small right posterior BG infract. Left side recurrent weakness x 2 days before admission. Left side of face recurrent numbness x 2 days. TIA.recently. Carotid A stenosis, right side 50%-75% per CTA. HTN HLD. Cellulitis, LE. Obesity. RECOMMENDATIONS/PLAN: Plavix 75 mg daily. Continue Lipitor HS. Echo + bubble study. He is currently on IV Heparin gtt. Consulted Vascular Surgery; carotid A endarterectomy in 2-3 days is reasonable. Discussed in detail with his family at bedside. CTA: refer to above findings. HISTORY OF THE PRESENT ILLNESS: 71-y-old male patient with hx of HTN and HLD developed symptoms of left side weakness on 12/29/16 and he received stroke evaluation. His brain MRI on was negative. His symptoms were resolved, but he was found to have carotid A stenosis 50-75% on the right side more than the left side. He developed symptoms of left side weakness maybe in PM of 12/30/16 lasted to the next morning to come to the ER of [facility]. His symptoms resolved in the ER when he was seen, but he was still hospitalized for the concerns of carotid A stenosis. Repeated brain MRI on 01/01/17 showed above infarct. Currently, no stroke guidelines regarding time frame of acute endarterectomy. Carotid A endarterectomy in a couple days is reasonable. Past Medical History: Diabetes-Type II, Hypertension, TIA Past Surgical History: Hip Replacement ALLERGY: Reviewed. MEDICATIONS: Refer to [facility] FAMILY HISTORY: Non contributory. SOCIAL HISTORY: Lives at home. Denies current smoking, drinking, and illicit drug use. REVIEW OF SYSTEMS: Constitutional: No malnutrition, weight loss, cachexia. Head: No traumatic brain or head injury. Skin: No edema, or rash. Ear: No infection. Eyes: No vision loss or color blindness. Nose: No bleeding or purulent discharges. Hearing: No hearing decrease. Neck: No injury. Cardiac: HTN, HLD. Pulmonary: No COPD. GI: No GI ulcer, GI bleeding. Urinary/genital: No dysuria, incontinence, urinary retention. Endocrinologic: No cousin face, craniofacial dysmorphism, polydactyly. Skeletomuscular: No muscular atrophy, deformity. Neurological: see HP. Psychiatric: Denies drug use/abuse. Otherwise, not [id number] review of systems. PHYSICAL EXAMINATION: General appearance is in subacute distress. HEENT: Normocephalic and nontraumatic. Eyes, nose, ears, and throat are unremarkable. Neck is supple. No lymphadenopathy. No crepitus. Cardiovascular: S1, S2, regular rate and rhythm. Pulmonary: Clear to auscultation bilaterally. Abdomen: Bowel sounds are positive. Abdomen is soft, nontender, and nondistended. Extremities: No rash, lesions, or edema. No restriction of range of motion NEUROLOGICAL EXAMINATION: Alert Oriented to time, place and person. PERRL. EOMI. CN: no focal findings. Muscle tone: within normal. Muscle strength: 2 left UE, 5 right UE. 4 LE. DTR: 1 left UE, 2 right side. Plantar reflex: Flexor response bilaterally Gait: not examined in bed. Sensory exam: no abnormal findings. No cerebellar signs elicited. F-T-N test fine. Objective Objective Vital Signs Date Time Temp Pulse Resp B/P (MAP) Pulse Ox O2 Delivery O2 Flow Rate FiO2 01/01/17 15:00 97.9 88 20 156/85 (108) 92 Room Air 97.9 Intake and Output 01/01/17 07:00 Intake Total 650 ml Output Total 450 ml Balance 200 ml Intake Oral 650 ml Output Urine Total 450 ml # Voids 2 Vitals Signs Vitals VS - Last 72 Hours, by Label Date Time Temp Pulse Resp B/P (MAP) Pulse Ox O2 Delivery O2 Flow Rate FiO2 01/01/17 15:00 97.9 88 20 156/85 (108) 92 Room Air 97.9 01/01/17 11:25 78 174/80 01/01/17 11:00 97.6 68 20 168/79 (108) 94 Room Air 97.6 01/01/17 09:00 78 174/80 01/01/17 09:00 78 174/80 01/01/17 08:00 Room Air 01/01/17 07:00 97.7 78 20 174/80 (111) 94 Room Air 97.7 01/01/17 03:00 97.6 70 18 144/77 (99) 94 Room Air 97.6 12/31/16 23:52 97.9 73 18 170/75 (106) 96 Room Air 97.9 12/31/16 21:53 72 185/83 12/31/16 20:00 Room Air 12/31/16 19:00 97.8 74 18 188/88 (121) 95 Room Air 97.8 12/31/16 14:30 97.4 86 20 181/94 (123) 95 Room Air 97.4 12/31/16 11:00 98.1 72 20 163/85 (111) 97 Room Air 98.1 12/31/16 10:42 Room Air 12/31/16 10:00 98.2 71 19 178/87 (117) 93 Room Air 98.2 12/31/16 07:07 73 18 175/82 (113) 96 Laboratory Laboratory Laboratory Tests Test 12/31/16 20:10 12/31/16 21:50 01/01/17 05:30 01/01/17 11:56 Heparin Anti-Xa Act, Unfractionated 0.13 IU/mL (0.30-0.70) 0.29 IU/mL (0.30-0.70) Glucose (Fingerstick) 155 mg/dL (70-99) 169 mg/dL (70-99) White Blood Count 10.7 x10^3/uL (4.0-11.0) Red Blood Count 5.25 x10^6/uL (4.30-5.70) Hemoglobin 15.5 g/dL (13.0-17.5) Hematocrit 46.4 % (39.0-53.0) Mean Corpuscular Volume 88 fL (79-100) Mean Corpuscular Hemoglobin 29 pg (25-35) Mean Corpuscular Hemoglobin Concent 33 g/dL (31-37) Red Cell Distribution Width 13.8 % (11.5-14.5) Platelet Count 324 x10^3/uL (140-400) Neutrophils (%) (Auto) 62 % (31-73) Lymphocytes (%) (Auto) 23 % (24-48) Monocytes (%) (Auto) 10 % (0-9) Eosinophils (%) (Auto) 4 % (0-3) Basophils (%) (Auto) 1 % (0-3) Neutrophils # (Auto) 6.7 x10^3uL (1.8-7.7) Lymphocytes # (Auto) 2.4 x10^3/uL (1.0-4.8) Monocytes # (Auto) 1.0 x10^3/uL (0.0-1.1) Eosinophils # (Auto) 0.5 x10^3/uL (0.0-0.7) Basophils # (Auto) 0.1 x10^3/uL (0.0-0.2) Sodium Level 140 mmol/L (136-145) Potassium Level 3.6 mmol/L (3.5-5.1) Chloride Level 103 mmol/L (98-107) Carbon Dioxide Level 28 mmol/L (21-32) Anion Gap 9 (6-14) Blood Urea Nitrogen 14 mg/dL (8-26) Creatinine 1.1 mg/dL (0.7-1.3) Estimated GFR (Cockcroft-Gault) 65.6 Glucose Level 162 mg/dL (70-99) Calcium Level 9.3 mg/dL (8.5-10.1) Triglycerides Level 91 mg/dL (0-150) Cholesterol Level 174 mg/dL (0-200) LDL Cholesterol, Calculated 111 mg/dL (0-100) VLDL Cholesterol, Calculated 18 mg/dL (0-40) Non-HDL Cholesterol Calculated 129 mg/dL (0-129) HDL Cholesterol 45 mg/dL (40-60) Cholesterol/HDL Ratio 3.9 Test 01/01/17 13:24 Heparin Anti-Xa Act, Unfractionated 0.10 IU/mL (0.30-0.70) Microbiology 12/31/16 Blood Culture - Preliminary, Resulted NO GROWTH AFTER 1 DAY Medication Medications Current Medications Amlodipine Besylate (Norvasc) 5 mg DAILY PO ; Start 01/01/17 at 09:00 Atorvastatin Calcium (Lipitor) 20 mg QHS PO Last administered on 12/31/16t 21: 52; Start 12/31/16 at 21:00 Cefazolin Sodium 1 gm/Sodium Chloride 500 ml @ 500 mls/hr 1X PERIOP ONCE IRR ; Start 01/01/17 at 10:00; Stop 01/01/17 at 10:59; Status DC Cefazolin Sodium/ Dextrose 50 ml @ 100 mls/hr 1X PREOP PRN IV PREOP; Start at 06:00; Stop 01/02/17 at 18:00 Fentanyl Citrate (Fentanyl 2ml Vial) 25 mcg PRN Q5MIN PRN IV MILD PAIN; Start 01/01/17 at 14:30; Stop 01/02/17 at 14:29 Fentanyl Citrate (Fentanyl 2ml Vial) 50 mcg PRN Q5MIN PRN IV MODERATE PAIN; Start 01/01/17 at 14:30; Stop 01/02/17 at 14:29 Glimepiride (Amaryl) 4 mg DAILY PO ; Start 01/01/17 at 09:00 Heparin Sodium (Porcine) 5000 unit/Ringer's Solution 505 ml @ 505 mls/hr 1X PERIOP ONCE IRR ; Start 01/01/17 at 10:00; Stop 01/01/17 at 10:59; Status DC Hydromorphone HCl (Dilaudid) 0.5 mg PRN Q10MIN PRN IV SEV PAIN, Second choice; Start 01/01/17 at 14:30; Stop 01/02/17 at 14:29 Insulin Aspart (NovoLOG) 0-5 UNITS TIDWMEALS SQ ; Start 01/01/17 at 08:00 Lidocaine HCl (Xylocaine-Mpf 1% Vial) 2 ml 1X PRN PRN ID IV START; Start 01/01 at 14:30; Stop 01/02/17 at 14:29 Lidocaine HCl 48 ml/Sodium Bicarbonate 12 meq/Miscellaneous 60 ml @ 60 mls/hr 1X PERIOP ONCE ID ; Start 01/01/17 at 10:00; Stop 01/01/17 at 10:59; Status DC Lisinopril (Prinivil) 40 mg DAILY PO ; Start 01/01/17 at 09:00 Metformin HCl (Glucophage) 500 mg BIDWMEALS PO Last administered on 01/01/17t 17:25; Start 01/01/17 at 08:00 Metoprolol Tartrate (Lopressor) 25 mg BID PO ; Start 01/01/17 at 11:00 Morphine Sulfate 1 mg PRN Q10MIN PRN IV SEVERE PAIN; Start 01/01/17 at 14:30; Stop 01/01/17 at 14:30; Status DC Morphine Sulfate 1 mg PRN Q10MIN PRN IV SEVERE PAIN; Start 01/01/17 at 14:30; Stop 01/02/17 at 14:29 Ondansetron HCl (Zofran) 4 mg PRN Q6HRS PRN IV NAUSEA/VOMITING; Start at 14:30; Stop 01/02/17 at 14:29 Prochlorperazine Edisylate (Compazine) 5 mg PACU PRN PRN IV NAUSEA, MRX1; Start 01/01/17 at 14:30; Stop 01/02/17 at 14:29 Ringer's Solution 1,000 ml @ 30 mls/hr Q24H IV ; Start 01/01/17 at 14:27; Stop 01/02/17 at 02:26 Comment Review of Relevant I have reviewed the following items michaela (where applicable) has been applied. SHANA LIMON MD Jan 01, 2017 19:44
[2017-01-01] MEDS: ATORVASTATIN CALCIUM 20 MG TABLET PO SCH (20:18)
[2017-01-01 23:00] VITALS: BP 156/81
[2017-01-02 03:00] VITALS: BP 167/77
[2017-01-02 07:00] VITALS: BP 193/91
[2017-01-02 07:02] VITALS: BP 187/94
--- NOTE | 2017-01-02 07:22 | PDOC ---
SURGICAL PROGRESS NOTE Subjective pt complains of weakness of the left hand, as before. He thinks, however, that it is improving Vital Signs Vital Signs Date Time Temp Pulse Resp B/P (MAP) Pulse Ox O2 Delivery O2 Flow Rate FiO2 01/02/17 03:00 98.1 77 18 167/77 (107) 96 Room Air 98.1 I&O Intake and Output 01/02/17 07:00 Intake Total 550 ml Output Total 0 ml Balance 550 ml Intake Oral 550 ml Output Urine Total 0 ml # Voids 1 # Bowel Movements 1 Neuro: Other (left hand weaker, fine motor control of fingers is lacking) Labs Laboratory Tests Test 12/31/16 13:50 12/31/16 20:10 12/31/16 21:50 01/01/17 05:30 Heparin Anti-Xa Act, Unfractionated 0.25 IU/mL (0.30-0.70) 0.13 IU/mL (0.30-0.70) 0.29 IU/mL (0.30-0.70) Glucose (Fingerstick) 155 mg/dL (70-99) White Blood Count 10.7 x10^3/uL (4.0-11.0) Red Blood Count 5.25 x10^6/uL (4.30-5.70) Hemoglobin 15.5 g/dL (13.0-17.5) Hematocrit 46.4 % (39.0-53.0) Mean Corpuscular Volume 88 fL (79-100) Mean Corpuscular Hemoglobin 29 pg (25-35) Mean Corpuscular Hemoglobin Concent 33 g/dL (31-37) Red Cell Distribution Width 13.8 % (11.5-14.5) Platelet Count 324 x10^3/uL (140-400) Neutrophils (%) (Auto) 62 % (31-73) Lymphocytes (%) (Auto) 23 % (24-48) Monocytes (%) (Auto) 10 % (0-9) Eosinophils (%) (Auto) 4 % (0-3) Basophils (%) (Auto) 1 % (0-3) Neutrophils # (Auto) 6.7 x10^3uL (1.8-7.7) Lymphocytes # (Auto) 2.4 x10^3/uL (1.0-4.8) Monocytes # (Auto) 1.0 x10^3/uL (0.0-1.1) Eosinophils # (Auto) 0.5 x10^3/uL (0.0-0.7) Basophils # (Auto) 0.1 x10^3/uL (0.0-0.2) Sodium Level 140 mmol/L (136-145) Potassium Level 3.6 mmol/L (3.5-5.1) Chloride Level 103 mmol/L (98-107) Carbon Dioxide Level 28 mmol/L (21-32) Anion Gap 9 (6-14) Blood Urea Nitrogen 14 mg/dL (8-26) Creatinine 1.1 mg/dL (0.7-1.3) Estimated GFR (Cockcroft-Gault) 65.6 Glucose Level 162 mg/dL (70-99) Calcium Level 9.3 mg/dL (8.5-10.1) Triglycerides Level 91 mg/dL (0-150) Cholesterol Level 174 mg/dL (0-200) LDL Cholesterol, Calculated 111 mg/dL (0-100) VLDL Cholesterol, Calculated 18 mg/dL (0-40) Non-HDL Cholesterol Calculated 129 mg/dL (0-129) HDL Cholesterol 45 mg/dL (40-60) Cholesterol/HDL Ratio 3.9 Test 01/01/17 11:56 01/01/17 13:24 01/01/17 23:40 Glucose (Fingerstick) 169 mg/dL (70-99) Heparin Anti-Xa Act, Unfractionated 0.10 IU/mL (0.30-0.70) 0.29 IU/mL (0.30-0.70) Laboratory Tests Test 01/01/17 11:56 01/01/17 13:24 01/01/17 23:40 Glucose (Fingerstick) 169 mg/dL (70-99) Heparin Anti-Xa Act, Unfractionated 0.10 IU/mL (0.30-0.70) 0.29 IU/mL (0.30-0.70) I have reviewed the following reviewed all tests including carotid duplex which demonstrates normal velocities , <50% stenoses Assessment/Plan Imp: 1. 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 Discussed with neurologist colleague and reviewed all relevant tests. It is not likely that this stroke is due to microemboli from the right carotid distribution, rather more likely due to small vessel disease secondary to diabetes and history of hypertension. 2. hx of hypertension, on 2 medications 3. type 2 DM Rec: 1. medical management: -plavix 75 mg daily -begin statin. -control of hypertension -rehab consult -f/u carotid duplex scan in 6 mos -june discharge if outpatient rehab can be arranged. Problems: EVERETTE QUEEN II, MD Jan 02, 2017 07:22
[2017-01-02] MEDS ORDERED: AMLO10TA2 PO (08:45)
[2017-01-02] MEDS ORDERED: ATOR40TA59 PO (08:45)
[2017-01-02] MEDS ORDERED: CLOP75TA PO (08:45)
[2017-01-02] MEDS ORDERED: amLODIPine BESYLATE 10 MG TABLET PO SCH (09:00)
[2017-01-02] MEDS ORDERED: CLOPIDOGREL BISULFATE 75 MG TABLET PO SCH (09:00)
[2017-01-02] MEDS: METOPROLOL TART IMMED RELEASE 25 MG TABLET. PO SCH (09:43)
[2017-01-02] MEDS: metFORMIN 500 MG TABLET PO SCH (09:43)
[2017-01-02] MEDS: GLIMEPIRIDE 2 MG TABLET. PO SCH (09:44)
[2017-01-02] MEDS: LISINOPRIL 40 MG TABLET. PO SCH (09:44)
[2017-01-02 11:00] VITALS: BP 160/69
--- NOTE | 2017-01-02 16:48 | PDOC ---
PROGRESS NOTES Assessment Assessment Acute small right posterior BG infract. Left side recurrent weakness x 2 days before admission. Left side of face recurrent numbness x 2 days. TIA.recently. Carotid A stenosis right side 50%-75%, right vertebral A 70% stenosis per CTA. < 50% per carotid A US. HTN HLD. Cellulitis, LE. Obesity. RECOMMENDATIONS/PLAN: Continue Plavix 75 mg daily. Add ASA 81 mg daily. Continue Lipitor HS. Consulted Vascular Surgery; not a candidate for carotid A endarterectomy. Discussed with patient and his in great detail about possibility of carotid A stent in or [facility], but he declined it. He understood the risk of recurrent stroke. CTA: refer to radiology reports. HISTORY OF THE PRESENT ILLNESS: 71-y-old male patient with hx of HTN and HLD developed symptoms of left side weakness on 12/29/16 and he received stroke evaluation. His brain MRI on was negative. His symptoms were resolved, but he was found to have carotid A stenosis 50-75% on the right side more than the left side. He developed symptoms of left side weakness maybe in PM of 12/30/16 lasted to the next morning to come to the ER of [facility]. His symptoms resolved in the ER when he was seen, but he was still hospitalized for the concerns of carotid A stenosis. Repeated brain MRI on 01/01/17 showed above infarct. Discussed with patient and his in great detail about possibility of carotid A stent for high grade intracranial A stenosis in or [facility], but he declined it. He understood the risk of recurrent stroke. Past Medical History: Diabetes-Type II, Hypertension, TIA Past Surgical History: Hip Replacement ALLERGY: Reviewed. MEDICATIONS: Refer to MAR FAMILY HISTORY: Non contributory. SOCIAL HISTORY: Lives at home. Denies current smoking, drinking, and illicit drug use. REVIEW OF SYSTEMS: Constitutional: No malnutrition, weight loss, cachexia. Head: No traumatic brain or head injury. Skin: No edema, or rash. Ear: No infection. Eyes: No vision loss or color blindness. Nose: No bleeding or purulent discharges. Hearing: No hearing decrease. Neck: No injury. Cardiac: HTN, HLD. Pulmonary: No COPD. GI: No GI ulcer, GI bleeding. Urinary/genital: No dysuria, incontinence, urinary retention. Endocrinologic: No cousin face, craniofacial dysmorphism, polydactyly. Skeletomuscular: No muscular atrophy, deformity. Neurological: see HP. Psychiatric: Denies drug use/abuse. Otherwise, not [id number] review of systems. PHYSICAL EXAMINATION: General appearance is in no acute distress. HEENT: Normocephalic and nontraumatic. Eyes, nose, ears, and throat are unremarkable. Neck is supple. No lymphadenopathy. No crepitus. Cardiovascular: S1, S2, regular rate and rhythm. Pulmonary: Clear to auscultation bilaterally. Abdomen: Bowel sounds are positive. Abdomen is soft, nontender, and nondistended. Extremities: No rash, lesions, or edema. No restriction of range of motion NEUROLOGICAL EXAMINATION: Alert Oriented to time, place and person. PERRL. EOMI. CN: no focal findings. Muscle tone: within normal. Muscle strength: 4 left UE, 5 right UE. 4+ LE. DTR: 1+ left UE, 2 right side. Plantar reflex: Flexor response bilaterally Gait: not examined in bed. Sensory exam: no abnormal findings. No cerebellar signs elicited. F-T-N test fine. Objective Objective Vital Signs Date Time Temp Pulse Resp B/P (MAP) Pulse Ox O2 Delivery O2 Flow Rate FiO2 01/02/17 11:00 97.9 68 20 160/69 (99) 94 Room Air 97.9 Intake and Output 01/02/17 07:00 Intake Total 550 ml Output Total 0 ml Balance 550 ml Intake Oral 550 ml Output Urine Total 0 ml # Voids 1 # Bowel Movements 1 Vitals Signs Vitals VS - Last 72 Hours, by Label Date Time Temp Pulse Resp B/P (MAP) Pulse Ox O2 Delivery O2 Flow Rate FiO2 01/02/17 11:00 97.9 68 20 160/69 (99) 94 Room Air 97.9 01/02/17 09:44 87 187/94 01/02/17 09:44 87 187/94 01/02/17 09:43 87 187/01/02/17 08:16 Room Air 01/02/17 07:02 87 187/94 (125) 01/02/17 07:00 97.6 83 18 193/91 (125) 96 Room Air 97.6 01/02/17 03:00 98.1 77 18 167/77 (107) 96 Room Air 98.1 01/01/17 23:00 97.9 83 18 156/81 (106) 92 Room Air 97.9 01/01/17 20:18 91 158/68 01/01/17 20:00 Room Air 01/01/17 19:00 97.9 91 20 158/68 (98) 94 Room Air 97.9 01/01/17 15:00 97.9 88 20 156/85 (108) 92 Room Air 97.9 01/01/17 11:25 78 174/80 01/01/17 11:00 97.6 68 20 168/79 (108) 94 Room Air 97.6 01/01/17 09:00 78 174/80 01/01/17 09:00 78 174/80 01/01/17 08:00 Room Air 01/01/17 07:00 97.7 78 20 174/80 (111) 94 Room Air 97.7 Laboratory Laboratory Laboratory Tests Test 01/01/17 17:23 01/01/17 20:03 01/01/17 23:40 01/02/17 07:17 Glucose (Fingerstick) 167 mg/dL (70-99) 186 mg/dL (70-99) 136 mg/dL (70-99) Heparin Anti-Xa Act, Unfractionated 0.29 IU/mL (0.30-0.70) Test 01/02/17 07:30 Heparin Anti-Xa Act, Unfractionated 0.51 IU/mL (0.30-0.70) Microbiology 12/31/16 Blood Culture - Preliminary, Resulted NO GROWTH AFTER 2 DAYS Medication Medications Current Medications Amlodipine Besylate (Norvasc) 10 mg DAILY PO Last administered on 01/02/17 09 :44; Start 01/02/17 at 09:00; Stop 01/02/17 at 15:53; Status DC Atorvastatin Calcium (Lipitor) 40 mg QHS PO ; Start 01/02/17 at 21:00; Stop at 21:00; Status DC Cefazolin Sodium/ Dextrose 50 ml @ 100 mls/hr 1X PREOP PRN IV PREOP; Start at 06:00; Stop 01/02/17 at 08:32; Status DC Clopidogrel Bisulfate (Plavix) 75 mg DAILYWBKFT PO Last administered on 11/15/ 17at 09:45; Start 01/02/17 at 09:00; Stop 01/02/17 at 15:53; Status DC Comment Review of Relevant I have reviewed the following items michaela (where applicable) has been applied. SHANA LIMON MD Jan 02, 2017 16:48
[2017-01-02] MEDS ORDERED: ATORVASTATIN CALCIUM 40 MG TABLET. PO SCH (21:00)
--- NOTE | 2017-01-05 18:33 | DS ---
DATE OF DISCHARGE: 01/02/2017 CHIEF COMPLAINT: Recurrent left arm weakness. HOSPITAL COURSE: The patient is a 71-year-old gentleman who had been discharged with same complaints 24 hours prior to re-presentation to the Emergency Room with left arm weakness. He had been deemed to have a TIA during previous admission as symptoms completely resolved. A carotid ultrasound at the time showed a 75% intracranial stenosis. With recurrence of his symptoms, he was started on heparin in the Emergency Room. Unfortunately, he was not a candidate for TPA as he had awoken with symptoms and onset was unknown. A complete workup once again was undertaken under the guidance of Neurology. MRI at this time actually did show a right posterior basal ganglia infarct. For the known right artery stenosis, a Vascular Surgery consult was obtained. As the lesion, however, was intracranial, carotid endarterectomy was deemed inappropriate. He was switched to Plavix from IV heparin. Attempt was made to get patient transferred to or [facility] for consideration of arterial stent placement. The patient, however, insisted on going home rather than being transferred despite being advised multiple times that he would be at high risk for recurrence of an embolic event. PHYSICAL EXAMINATION: VITAL SIGNS: Showed a blood pressure of 160/69, heart rate of 68, respiratory rate at 20. GENERAL: Morbidly obese, alert and oriented, in no acute distress. LUNGS: Clear. HEART: Regular rate and rhythm. ABDOMEN: Obese, positive bowel sounds. EXTREMITIES: No edema. DISCHARGE DIAGNOSIS: Cerebrovascular accident. DISCHARGE DISPOSITION: Home with services. DISCHARGE CONDITION: Improved. DISCHARGE MEDICATIONS: Please refer to MAR. DISCHARGE INSTRUCTIONS: The patient was advised to follow up with primary care physician for referral to vascular intervention for consideration of carotid artery stent placement. Greater than 30 minutes were spent in arranging discharge. JOELLE DEMARCO MD DR: UR/nts JOB#: [id number] / [id number] LOS Resendiz MD
== END 2017-01-02 14:25 | disposition home or self-care (01) | DRG 65 ==
LOC: ER 05:46 → 6 SOUTH 06:45 → 2 NORTH 01-01 14:46 → 6 SOUTH 01-01 15:34
PROVIDERS: ADMIT Internal Medicine Hematology & Oncology; ATTEND Internal Medicine Hematology & Oncology
DX: I63.9 Cerebral infarction, unspecified (principal); Z68.42 Body mass index [BMI] 45.0-49.9, adult; E11.51 Type 2 diabetes mellitus with diabetic peripheral angiopathy without gangrene; L03.119 Cellulitis of unspecified part of limb; E78.5 Hyperlipidemia, unspecified; I10 Essential (primary) hypertension; Z96.649 Presence of unspecified artificial hip joint; E66.01 Morbid (severe) obesity due to excess calories; G83.24 Monoplegia of upper limb affecting left nondominant side; I65.29 Occlusion and stenosis of unspecified carotid artery; Z79.02 Long term (current) use of antithrombotics/antiplatelets; Z79.4 Long term (current) use of insulin; Z79.82 Long term (current) use of aspirin; Z86.73 Personal history of transient ischemic attack (TIA), and cerebral infarction without residual deficits
CPT/HCPCS: 36415; 70450; 70551; 80048; 80053; 80061; 81001; 82962; 84443; 84484; 85025; 85520; 85610; 85730; 87040; 93005; 93880; J0360; J1644; 92610; 97110; 99285-25

== ENCOUNTER → 2017-06-18 | Outpatient (CLI) | payer MEDICARE ==
[2017-06-18 14:14] LABS: BILIRUBIN,URINE NEGATIVE (NEG); CLARITY,URINE CLEAR; COLOR,URINE YELLOW; GLUCOSE,URINE NEGATIVE (NEG); NITRITE,URINE NEGATIVE (NEG); PROTEIN,URINE NEGATIVE (NEG-TRACE)
[2017-06-18 14:40] LABS: ADD MAN DIFF? NO
[2017-06-18 14:45] LABS: BASO % 1 % (0-3); EOS # 0.4 x10^3/uL (0.0-0.7); EOS % 4 % (0-3); HEMATOCRIT 41.6 % (39.0-53.0); HEMOGLOBIN 14.2 g/dL (13.0-17.5); LYMPH # 1.7 x10^3/uL (1.0-4.8); LYMPH % 20 % (24-48); MEAN CORPUSCULAR HEMOGLOBIN 31 pg (25-35); MEAN CORPUSCULAR HGB CONC 34 g/dL (31-37); MEAN CORPUSCULAR VOLUME 90 fL (79-100); MONO # 0.9 x10^3/uL (0.0-1.1); MONO % 10 % (0-9); NEUT # 5.6 x10^3uL (1.8-7.7); NEUT % 65 % (31-73); PLATELET COUNT 308 x10^3/uL (140-400); RED BLOOD COUNT 4.65 x10^6/uL (4.30-5.70); RED CELL DISTRIBUTION WIDTH 13.3 % (11.5-14.5); WHITE BLOOD COUNT 8.6 x10^3/uL (4.0-11.0)
[2017-06-18 14:50] LABS: BACTERIA,URINE 0 /HPF (0-FEW); RBC,URINE 0 /HPF (0-2); SQUAMOUS EPITHELIAL CELL,UR FEW /LPF; WBC,URINE OCC /HPF (0-4)
[2017-06-18 14:56] LABS: PARTIAL THROMBOPLASTIN TIME 29 SEC (24-38); PROTHROMBIN TIME PATIENT 12.2 SEC (11.7-14.0)
[2017-06-18 15:01] LABS: ALBUMIN 3.3 g/dL (3.4-5.0); ANION GAP 8 (6-14); BLOOD UREA NITROGEN 18 mg/dL (8-26); CALCIUM 8.9 mg/dL (8.5-10.1); CARBON DIOXIDE 28 mmol/L (21-32); CHLORIDE 105 mmol/L (98-107); GFR 73.2; GLUCOSE 116 mg/dL (70-99); POTASSIUM 3.9 mmol/L (3.5-5.1); SODIUM 141 mmol/L (136-145)
[2017-06-18 15:55] LABS: SEDIMENTATION RATE 22 (0-15)
[2017-06-19 03:17] LABS: MRSA BY PCR Negative (Negative)
[2017-06-19 04:22] LABS: HEMOGLOBIN A1C 5.8 % (4.8-5.6)
== END | disposition home or self-care (01) ==
LOC: SURGPAT 13:35
DX: Z01.812 Encounter for preprocedural laboratory examination (principal); M16.12 Unilateral primary osteoarthritis, left hip; R79.89 Other specified abnormal findings of blood chemistry; Z79.01 Long term (current) use of anticoagulants
CPT/HCPCS: 36415; 80048; 81001; 82040; 83036; 85025; 85610; 85651; 85730; 87641

== ENCOUNTER 2017-07-02 07:46 | Inpatient (IN) | payer MEDICARE ==
[~2017-07-02 07:46] MED LIST changes: -AMLO5TAB2 PO; -ASPI-482 PO; -ATOR20TA58 PO; -BENA40TA2 PO; -GLIM4TAB2 PO; +LIDOCAINE 1% PF 2 ML VIAL. ID; +LIDOCAINE 2% PF Vial for OR 5 ML VIAL.; -METF500T4 PO; +MORPHINE SULFATE 4 MG/ML DISP.SYRIN. IV; +ONDANSETRON PF 4 MG/2 ML VIAL. IV; +PROPOFOL 20 ML IV; +ROCURONIUM 50 MG/5 ML VIAL.; +fentaNYL PF VIAL 100 MCG/2 ML VIAL; +fentaNYL PF VIAL 100 MCG/2 ML VIAL IV
[2017-07-02] MEDS ORDERED: SUCCINYLCHOLINE 200 MG/10 ML VIAL. (07:59)
[2017-07-02] MEDS ORDERED: 0.9 % SODIUM CHLORIDE 10 ML DISP.SYRIN. IV (08:30)
[2017-07-02] MEDS ORDERED: fentaNYL PF VIAL 100 MCG/2 ML VIAL IV ×2 (08:30)
[2017-07-02] MEDS ORDERED: MORPHINE SULFATE 10 MG/ML VIAL. IV (08:30)
[2017-07-02] MEDS ORDERED: oxyCODONE/APAP 7.5/325 1 TAB TABLET PO (08:30)
[2017-07-02] MEDS ORDERED: ACETAMINOPHEN 325 MG TABLET. PO (08:30)
[2017-07-02] MEDS ORDERED: oxyCODONE/APAP 5/325 1 TAB TABLET PO (08:30)
[2017-07-02] MEDS ORDERED: traMADol 50 MG TABLET PO ×2 (08:30)
[2017-07-02] MEDS ORDERED: PROCHLORPERAZINE 10 MG/2 ML VIAL. IV (08:30)
[2017-07-02] MEDS ORDERED: DEXTROSE 50% 25 GM / 50ML DISP.SYRIN. IV (08:30)
[2017-07-02] MEDS ORDERED: ZOLPIDEM 5 MG TABLET. PO (08:30)
[2017-07-02] MEDS ORDERED: CALCIUM CARBONATE 500 MG TAB.CHEW PO (08:30)
[2017-07-02] MEDS ORDERED: diphenhydrAMINE 50 MG/ML VIAL IV (08:30)
[2017-07-02] MEDS ORDERED: MORPHINE SULFATE 4 MG/ML DISP.SYRIN. IV ×2 (08:30)
[2017-07-02] MEDS: HYDROcodone/APAP 7.5/325MG 1 TAB TABLET PO (08:38)
[2017-07-02] MEDS: CELECOXIB 200 MG CAPSULE. PO ×2 (08:39→21:20)
[2017-07-02] MEDS: IV RINGERS,LACTATED 1000ML 1,000 ML IV (08:48)
[2017-07-02 08:52] LABS: POC GLUCOSE 80 mg/dL (70-99)
[2017-07-02] MEDS: ASPIRIN ENTERIC COATED 81 MG TABLET.DR. PO (09:00)
[2017-07-02] MEDS: amLODIPine BESYLATE 5 MG TABLET PO (09:00)
[2017-07-02] MEDS: ceFAZolin SODIUM 3 GM in IV DEXTROSE 5% 100 ML IV ×3 (09:03→21:20)
[2017-07-02] MEDS ORDERED: fentaNYL PF VIAL 100 MCG/2 ML VIAL (09:06)
[2017-07-02] MEDS ORDERED: PHENYLEPHRINE in 0.9% NACL PF 1 MG/10 ML SYRINGE. IV (09:13)
[2017-07-02] MEDS ORDERED: ePHEDrine PF IN SALINE 50 MG/5 ML DISP.SYRIN IV (09:13)
[2017-07-02] MEDS: MORPHINE SULFATE 5 MG, KETOROLAC 30 MG, ROPIVacaine 0.5% PF 60 ML, EPINEPHrine 0.5 MG i... INT ART (09:20)
[2017-07-02] MEDS ORDERED: ESMOLOL 100 MG/10 ML VIAL. IV (09:43)
[2017-07-02] MEDS ORDERED: DEXAMETHASONE SOD PHOS 20 MG/5 ML VIAL. (09:46)
[2017-07-02] MEDS ORDERED: ONDANSETRON PF 4 MG/2 ML VIAL. (09:46)
[2017-07-02] MEDS ORDERED: NEOSTIGMINE METHYLSULFATE 5 MG/5 ML SYRINGE. (09:46)
[2017-07-02] MEDS ORDERED: GLYCOPYRROLATE 1 MG/5 ML VIAL. (09:46)
[2017-07-02] MEDS ORDERED: LISINOPRIL 20 MG TABLET PO (10:00)
[2017-07-02] MEDS ORDERED: PROPOFOL 20 ML IV (10:53)
[2017-07-02] MEDS: PROCHLORPERAZINE 10 MG/2 ML VIAL. IV (11:10)
[2017-07-02] MEDS: fentaNYL PF VIAL 100 MCG/2 ML VIAL IV ×5 (11:10→13:07)
[2017-07-02 11:21] LABS: POC GLUCOSE 190 mg/dL (70-99)
[2017-07-02] MEDS: MORPHINE SULFATE 4 MG/ML DISP.SYRIN. IV (11:36)
[2017-07-02] MEDS: INSULIN ASPART 100 UNIT/ML 10ML VIAL. SQ (11:41)
[2017-07-02] MEDS ORDERED: ceFAZolin 2GM PREMIX 2 GM/50 ML BAG IV (12:00)
[2017-07-02] MEDS: IV DEXTROSE 5 %-0.45 % NACL 1,000 ML IV (14:40)
[2017-07-02] MEDS ORDERED: WARFARIN 7.5 MG TABLET. PO (16:00)
[2017-07-02] MEDS: MULTIVITAMIN with MINERAL TABLET. PO (17:51)
[2017-07-02] MEDS: GLIMEPIRIDE 2 MG TABLET. PO (17:51)
[2017-07-02] MEDS: FERROUS SULFATE 325 MG TABLET. PO (17:51)
[2017-07-02] MEDS: SENNOSIDES/DOCUSATE 8.6/50MG TABLET. PO (17:51)
[2017-07-02] MEDS: KETOROLAC 30 MG, BUPIVACAINE MPF 0.25% 20 ML, EPINEPHrine 0.5 MG in TOTAL VOLUME SYRING... INT ART (18:00)
[2017-07-02] MEDS: LISINOPRIL 20 MG TABLET PO (21:00)
[2017-07-02] MEDS: ATORVASTATIN CALCIUM 40 MG TABLET. PO (21:20)
[2017-07-02] MEDS: HYDROcodone/APAP 10/325 1 TAB TABLET PO (21:20)
[2017-07-03] MEDS: ceFAZolin SODIUM 3 GM in IV DEXTROSE 5% 100 ML IV (02:56)
[2017-07-03] MEDS: IV DEXTROSE 5 %-0.45 % NACL 1,000 ML IV (02:56)
[2017-07-03 04:00] LABS: POC GLUCOSE 186 mg/dL (70-99)
[2017-07-03 04:53] LABS: HEMATOCRIT 31.9 % (39.0-53.0); MEAN CORPUSCULAR HGB CONC 34 g/dL (31-37)
[2017-07-03 05:03] LABS: INR 1.2 (0.8-1.1); PROTHROMBIN TIME PATIENT 14.5 SEC (11.7-14.0)
[2017-07-03] MEDS: KETOROLAC 30 MG, BUPIVACAINE MPF 0.25% 20 ML, EPINEPHrine 0.5 MG in TOTAL VOLUME SYRING... INT ART (05:59)
[2017-07-03] MEDS ORDERED: MAGNESIUM HYDROXIDE 2,400 MG/30 ML ORAL.SUSP. PO (06:00)
[2017-07-03 07:15] LABS: POC GLUCOSE 172 mg/dL (70-99)
[2017-07-03] MEDS: ASPIRIN ENTERIC COATED 81 MG TABLET.DR. PO (07:55)
[2017-07-03] MEDS: FERROUS SULFATE 325 MG TABLET. PO ×2 (07:56→16:47)
[2017-07-03] MEDS: CELECOXIB 200 MG CAPSULE. PO ×2 (07:56→21:03)
[2017-07-03] MEDS: MULTIVITAMIN with MINERAL TABLET. PO (07:56)
[2017-07-03] MEDS: CLOPIDOGREL BISULFATE 75 MG TABLET PO (07:56)
[2017-07-03] MEDS: SENNOSIDES/DOCUSATE 8.6/50MG TABLET. PO (07:56)
[2017-07-03] MEDS: GLIMEPIRIDE 2 MG TABLET. PO (07:56)
[2017-07-03] MEDS: amLODIPine BESYLATE 5 MG TABLET PO (07:57)
[2017-07-03] MEDS: HYDROcodone/APAP 7.5/325MG 1 TAB TABLET PO ×2 (07:59→20:29)
[2017-07-03 11:24] LABS: POC GLUCOSE 136 mg/dL (70-99)
[2017-07-03] MEDS ORDERED: BISACODYL 10 MG SUPP.RECT. PR (16:00)
[2017-07-03 16:49] LABS: POC GLUCOSE 140 mg/dL (70-99)
[2017-07-03 20:48] LABS: POC GLUCOSE 134 mg/dL (70-99)
[2017-07-03] MEDS: ATORVASTATIN CALCIUM 40 MG TABLET. PO (21:03)
[2017-07-03] MEDS: LISINOPRIL 20 MG TABLET PO (21:05)
[2017-07-04 06:16] LABS: HEMATOCRIT 29.3 % (39.0-53.0); HEMOGLOBIN 10.1 g/dL (13.0-17.5); MEAN CORPUSCULAR HGB CONC 35 g/dL (31-37)
[2017-07-04 06:23] LABS: INR 1.1 (0.8-1.1)
[2017-07-04 06:35] LABS: POC GLUCOSE 118 mg/dL (70-99)
[2017-07-04] MEDS: GLIMEPIRIDE 2 MG TABLET. PO (07:43)
[2017-07-04] MEDS: FERROUS SULFATE 325 MG TABLET. PO ×2 (07:44→17:33)
[2017-07-04] MEDS: CLOPIDOGREL BISULFATE 75 MG TABLET PO (07:44)
[2017-07-04] MEDS: CELECOXIB 200 MG CAPSULE. PO ×2 (08:28→20:59)
[2017-07-04] MEDS: SENNOSIDES/DOCUSATE 8.6/50MG TABLET. PO (08:28)
[2017-07-04] MEDS: ASPIRIN ENTERIC COATED 81 MG TABLET.DR. PO (08:28)
[2017-07-04] MEDS: MULTIVITAMIN with MINERAL TABLET. PO (08:28)
[2017-07-04] MEDS: amLODIPine BESYLATE 5 MG TABLET PO (08:30)
[2017-07-04] MEDS: HYDROcodone/APAP 7.5/325MG 1 TAB TABLET PO (09:59)
[2017-07-04] MEDS: ATORVASTATIN CALCIUM 40 MG TABLET. PO (20:59)
[2017-07-04] MEDS: LISINOPRIL 20 MG TABLET PO (21:00)
[2017-07-05 05:04] LABS: INR 1.1 (0.8-1.1); PROTHROMBIN TIME PATIENT 13.4 SEC (11.7-14.0)
[2017-07-05 06:48] LABS: POC GLUCOSE 127 mg/dL (70-99)
[2017-07-05] MEDS: SENNOSIDES/DOCUSATE 8.6/50MG TABLET. PO (08:18)
[2017-07-05] MEDS: FERROUS SULFATE 325 MG TABLET. PO (08:18)
[2017-07-05] MEDS: ASPIRIN ENTERIC COATED 81 MG TABLET.DR. PO (08:18)
[2017-07-05] MEDS: CLOPIDOGREL BISULFATE 75 MG TABLET PO (08:18)
[2017-07-05] MEDS: MULTIVITAMIN with MINERAL TABLET. PO (08:18)
[2017-07-05] MEDS: GLIMEPIRIDE 2 MG TABLET. PO (08:19)
[2017-07-05] MEDS: CELECOXIB 200 MG CAPSULE. PO (08:19)
[2017-07-05] MEDS: POLYETHYLENE GLYCOL 3350 17 GM PACKET. PO ×2 (08:20→12:48)
[2017-07-05] MEDS: amLODIPine BESYLATE 5 MG TABLET PO (08:25)
[2017-07-05] MEDS: HYDROcodone/APAP 7.5/325MG 1 TAB TABLET PO ×2 (09:37→12:49)
[2017-07-05 10:10] LABS: HEMOGLOBIN 10.5 g/dL (13.0-17.5); MEAN CORPUSCULAR HGB CONC 34 g/dL (31-37)
[2017-07-05 11:45] LABS: POC GLUCOSE 132 mg/dL (70-99)
== END 2017-07-05 14:20 | disposition home health service (06) | DRG 470 ==
LOC: OPSVCIP 07:46 → 4 SOUTHEST 13:00
PROVIDERS: Orthopaedic Surgery
PROC: 0SRB06Z Replacement of Left Hip Joint with Oxidized Zirconium on Polyethylene Synthetic Substitute, Open Approach (ICD-10-PCS; principal; 2017-07-02 08:49)
DX: M16.12 Unilateral primary osteoarthritis, left hip (principal)
CPT/HCPCS: 36415; 72170; 82962; 85014; 85018; 85610; 86850; 86900; 86901; 88304; 88311; 97116-GP; 97150-GP; 97162-GP; 97166-GO; 97530-GP; 97535-GO; A7015; C1713; J0171; J0330; J0690; J0780; J1100; J1815; J1885; J2270; J2370; J2405; J2704; J2710; J2795; J3010; J3490; J7030; J7120

== ENCOUNTER 2017-10-19 04:02 | Inpatient (IN) | payer MEDICARE ==
[~2017-10-19] VITALS: Ht 177.8 cm; Wt 140.6 kg
[~2017-10-19 04:02] MED LIST changes: +AMLO10TA6 PO; +AMLO5TAB7 PO; +ASPI-482 PO; +ATOR20TA58 PO; +ATOR40TA59 PO; +BENA40TA3 PO; +CLOP75TA PO; +FERR325T14 PO; +GLIM4TAB2 PO; +HYDR-2762 PO; -LIDOCAINE 1% PF 2 ML VIAL. ID; -LIDOCAINE 2% PF Vial for OR 5 ML VIAL.; +METF10007 PO; +METF500T16 PO; -MORPHINE SULFATE 4 MG/ML DISP.SYRIN. IV; -ONDANSETRON PF 4 MG/2 ML VIAL. IV; -PROPOFOL 20 ML IV; -ROCURONIUM 50 MG/5 ML VIAL.; +SENN1TAB8 PO; -fentaNYL PF VIAL 100 MCG/2 ML VIAL; -fentaNYL PF VIAL 100 MCG/2 ML VIAL IV
--- NOTE | 2017-10-19 04:59 | RAD ---
PQRS Compliance Statement: One or more of the following individualized dose reduction techniques were utilized for this examination: 1. Automated exposure control 2. Adjustment of the mA and/or kV according to patient size 3. Use of iterative reconstruction technique CT ABDOMEN PELVIS WO CONTRAST Clinical Indication: hematuria, dysuria Comparison: None. Technique: Helical CT imaging of the abdomen and pelvis is performed without IV or oral contrast. Findings: There is outside of [id number] artifact that increases noise to signal ratio and degrades image quality. Lung bases essentially clear. Cardiac size normal. Calcified granulomas in the spleen. Cholecystectomy. The liver, pancreas, adrenal glands, and abdominal aorta caliber are normal. There is moderate atherosclerotic calcification of the abdominal aorta. There is a 6 cm hypodense lesion of the right kidney. Cannot confirm that this is a simple cyst probably due to artifact but the attenuation is greater than that of simple fluid. There is bilateral perinephric stranding, nonspecific. There is no hydronephrosis. Stomach unremarkable. There is no dilated small bowel. There are diverticula of the distal colon without inflammation. No colon wall thickening. The appendix is normal. No abdominal adenopathy or free fluid. There are bilateral hip arthroplasties that create beam hardening artifact and severely limit evaluation of the pelvis. There is no urinary bladder wall thickening. The base of the bladder is obscured due to artifact. There is no obvious pelvic free fluid. The region of the prostate is obscured due to artifact. There is lower lumbar facet hypertrophy. Degenerative endplate spurring in the thoracolumbar spine. IMPRESSION: 1. No acute abdominal or pelvic abnormality. 2. 6 cm hypodense lesion of the right kidney, cannot be confirmed to be a simple cyst by attenuation. Recommend outpatient renal ultrasound. 3. Mild distal colon diverticulosis without diverticulitis. Electronically signed by: Juni Hugo MD (10/19/2017 4:55 AM) [facility]
[2017-10-19] MEDS ORDERED: IV NORMAL SALINE 1000ML BAG 1,000 ML IV ONE (05:00)
[2017-10-19 05:01] LABS: BASO # 0.1 x10^3/uL (0.0-0.2); BASO % 1 % (0-3); EOS # 0.5 x10^3/uL (0.0-0.7); EOS % 5 % (0-3); HEMATOCRIT 39.1 % (39.0-53.0); HEMOGLOBIN 13.1 g/dL (13.0-17.5); LYMPH # 1.8 x10^3/uL (1.0-4.8); LYMPH % 19 % (24-48); MEAN CORPUSCULAR HEMOGLOBIN 29 pg (25-35); MEAN CORPUSCULAR HGB CONC 34 g/dL (31-37); MEAN CORPUSCULAR VOLUME 86 fL (79-100); MONO # 0.9 x10^3/uL (0.0-1.1); MONO % 9 % (0-9); NEUT # 6.4 x10^3uL (1.8-7.7); NEUT % 67 % (31-73); PLATELET COUNT 346 x10^3/uL (140-400); RED BLOOD COUNT 4.56 x10^6/uL (4.30-5.70); RED CELL DISTRIBUTION WIDTH 14.5 % (11.5-14.5); WHITE BLOOD COUNT 9.6 x10^3/uL (4.0-11.0)
--- NOTE | 2017-10-19 05:05 | PHYS DOC ---
Past Medical History Past Medical History: Diabetes-Type II, Hypertension, Stroke, TIA Past Surgical History: Cholecystectomy, Hip Replacement Alcohol Use: None Drug Use: None Adult General Chief Complaint Chief Complaint: URINARY RETENTION HPI HPI 72-year-old male presents with report of issues with urinary retention for which patient was instructed to perform self-catheterization. Patient seen yesterday for decreased output with gross blood noted upon catheterization. Patient prescribed empiric antibiotics of which he has been taking. Denies nausea or vomiting. Denies trauma. Patient does report use of blood thinners. Denies fever or chills. Review of Systems Review of Systems Constitutional: Denies fever or chills; generalized malaise Eyes: Denies change in visual acuity, redness, or eye pain [] HENT: Denies nasal congestion or sore throat [] Respiratory: Denies cough or shortness of breath [] Cardiovascular: Denies chest pain or palpitations GI: Reports suprapubic abdominal pain and distention; denies nausea, vomiting, bloody stools or diarrhea [] : Reports urinary and gross hematuria Musculoskeletal: Denies back pain or joint pain [] Integument: Denies rash or skin lesions [] Neurologic: Denies headache, focal weakness or sensory changes [] Complete systems were reviewed and found to be within normal limits, except as documented in this note. Current Medications Current Medications Current Medications Medications (Trade) Dose Ordered Sig/Lily Start Time Stop Time Status Last Admin Dose Admin Sodium Chloride 1,000 ml @ 1,000 mls/hr 1X ONCE 10/19/17 05:00 10/19/17 05:59 DC 10/19/17 04:56 1,000 MLS/HR Allergies Allergies Allergies Coded Allergies Type Severity Reaction Last Updated Verified No Known Drug Allergies 12/29/16 No Physical Exam Physical Exam Constitutional: Well developed, well nourished, no acute distress, non-toxic appearance, Uncomfortable HENT: Normocephalic, atraumatic, oropharynx moist Eyes: PERRL, EOMI, conjunctiva normal, no discharge. [] Neck: Normal range of motion, no tenderness, supple, no stridor. [] Cardiovascular: Heart rate regular rhythm, no murmur [] Lungs & Thorax: Bilateral breath sounds clear to auscultation [] Abdomen: Soft, suprapubic tenderness, obese abdomen Skin: Warm, dry, no erythema, no rash. [] Back: No tenderness, no CVA tenderness. [] Extremities: No tenderness, ROM intact, no edema. [] Neurologic: Alert and oriented X 3, normal motor function, normal sensory function, no focal deficits noted. [] Psychologic: Affect normal, judgement normal, mood normal. [] Current Patient Data Vital Signs Vital Signs Date Time Temp Pulse Resp B/P (MAP) Pulse Ox O2 Delivery O2 Flow Rate FiO2 10/19/17 05:00 79 94 10/19/17 04:02 98.3 24 178/79 (112) Room Air 98.3 Lab Values Laboratory Tests Test 10/19/17 04:55 10/19/17 05:10 White Blood Count 9.6 x10^3/uL (4.0-11.0) Red Blood Count 4.56 x10^6/uL (4.30-5.70) Hemoglobin 13.1 g/dL (13.0-17.5) Hematocrit 39.1 % (39.0-53.0) Mean Corpuscular Volume 86 fL (79-100) Mean Corpuscular Hemoglobin 29 pg (25-35) Mean Corpuscular Hemoglobin Concent 34 g/dL (31-37) Red Cell Distribution Width 14.5 % (11.5-14.5) Platelet Count 346 x10^3/uL (140-400) Neutrophils (%) (Auto) 67 % (31-73) Lymphocytes (%) (Auto) 19 % (24-48) L Monocytes (%) (Auto) 9 % (0-9) Eosinophils (%) (Auto) 5 % (0-3) H Basophils (%) (Auto) 1 % (0-3) Neutrophils # (Auto) 6.4 x10^3uL (1.8-7.7) Lymphocytes # (Auto) 1.8 x10^3/uL (1.0-4.8) Monocytes # (Auto) 0.9 x10^3/uL (0.0-1.1) Eosinophils # (Auto) 0.5 x10^3/uL (0.0-0.7) Basophils # (Auto) 0.1 x10^3/uL (0.0-0.2) Prothrombin Time 12.8 SEC (11.7-14.0) Prothrombin Time INR 1.0 (0.8-1.1) PTT 28 SEC (24-38) Sodium Level 139 mmol/L (136-145) Potassium Level 4.4 mmol/L (3.5-5.1) Chloride Level 104 mmol/L (98-107) Carbon Dioxide Level 27 mmol/L (21-32) Anion Gap 8 (6-14) Blood Urea Nitrogen 14 mg/dL (8-26) Creatinine 1.1 mg/dL (0.7-1.3) Estimated GFR (Cockcroft-Gault) 65.4 BUN/Creatinine Ratio 13 (6-20) Glucose Level 139 mg/dL (70-99) H Calcium Level 8.9 mg/dL (8.5-10.1) Magnesium Level 2.0 mg/dL (1.8-2.4) Total Bilirubin 0.4 mg/dL (0.2-1.0) Aspartate Amino Transferase (AST) 18 U/L (15-37) Alanine Aminotransferase (ALT) 18 U/L (16-63) Alkaline Phosphatase 116 U/L (46-116) Total Protein 7.1 g/dL (6.4-8.2) Albumin 3.4 g/dL (3.4-5.0) Albumin/Globulin Ratio 0.9 (1.0-1.7) L Lipase 115 U/L (73-393) Laboratory Tests 10/19/17 04:55 Laboratory Tests 10/19/17 05:10 EKG EKG [] Radiology/Procedures Radiology/Procedures PROCEDURE: CT ABDOMEN PELVIS WO CONTRAST PQRS Compliance Statement: One or more of the following individualized dose reduction techniques were utilized for this examination: 1. Automated exposure control 2. Adjustment of the mA and/or kV according to patient size 3. Use of iterative reconstruction technique CT ABDOMEN PELVIS WO CONTRAST Clinical Indication: hematuria, dysuria Comparison: None. Technique: Helical CT imaging of the abdomen and pelvis is performed without IV or oral contrast. Findings: There is outside of [id number] artifact that increases noise to signal ratio and degrades image quality. Lung bases essentially clear. Cardiac size normal. Calcified granulomas in the spleen. Cholecystectomy. The liver, pancreas, adrenal glands, and abdominal aorta caliber are normal. There is moderate atherosclerotic calcification of the abdominal aorta. There is a 6 cm hypodense lesion of the right kidney. Cannot confirm that this is a simple cyst probably due to artifact but the attenuation is greater than that of simple fluid. There is bilateral perinephric stranding, nonspecific. There is no hydronephrosis. Stomach unremarkable. There is no dilated small bowel. There are diverticula of the distal colon without inflammation. No colon wall thickening. The appendix is normal. No abdominal adenopathy or free fluid. There are bilateral hip arthroplasties that create beam hardening artifact and severely limit evaluation of the pelvis. There is no urinary bladder wall thickening. The base of the bladder is obscured due to artifact. There is no obvious pelvic free fluid. The region of the prostate is obscured due to artifact. There is lower lumbar facet hypertrophy. Degenerative endplate spurring in the thoracolumbar spine. IMPRESSION: 1. No acute abdominal or pelvic abnormality. 2. 6 cm hypodense lesion of the right kidney, cannot be confirmed to be a simple cyst by attenuation. Recommend outpatient renal ultrasound. 3. Mild distal colon diverticulosis without diverticulitis. Electronically signed by: Juni Huog MD (10/19/2017 4:55 AM) [facility] Course & Med Decision Making Course & Med Decision Making Pertinent Labs and Imaging studies reviewed. (See chart for details) Patient presents with concern for urinary retention with history of gross hematuria for which patient recently followed with urology yesterday.. Patient with history of self-catheterization. Bladder scan greater then 1 L. Downs catheterization placed with three-way catheter in case of need for bladder irrigation. Labs obtained and posted to chart. H&H stable. CT abdomen/pelvis without acute process. Patient failed outpatient therapy with straight catheterizations. Patient requiring admission for further evaluation and treatment. Discussed with Dr. Lam (hospitalist) who is in agreement with admission. Discussed findings and plan with patient and family, who acknowledge understanding and agreement. Dragon Disclaimer Dragon Disclaimer This electronic medical record was generated, in whole or in part, using a voice recognition dictation system. Departure Departure Impression: Primary Impression: Urinary retention Additional Impression: Hematuria Disposition: ADMITTED INPATIENT Admitting Physician: Yris Lam Condition: STABLE Referrals: LOS ROJAS (PCP) Problem Qualifiers Additional Impression: Hematuria Hematuria type: unspecified type Qualified Codes: R31.9 - Hematuria, unspecified DIONI MEDINA DO Oct 19, 2017 05:05
[2017-10-19 05:21] LABS: PROTHROMBIN TIME PATIENT 12.8 SEC (11.7-14.0)
[2017-10-19] MEDS ORDERED: ONDANSETRON PF 4 MG/2 ML VIAL. IV PRN (05:30)
[2017-10-19] MEDS ORDERED: DEXTROSE 50% 25 GM / 50ML DISP.SYRIN. IV PRN (05:30)
[2017-10-19 05:40] LABS: CALCIUM 8.9 mg/dL (8.5-10.1); CREATININE 1.1 mg/dL (0.7-1.3); GFR 65.4
[2017-10-19 05:46] LABS: ALBUMIN 3.4 g/dL (3.4-5.0); ALBUMIN/GLOBULIN RATIO 0.9 (1.0-1.7); POTASSIUM 4.4 mmol/L (3.5-5.1); TOTAL BILIRUBIN 0.4 mg/dL (0.2-1.0); TOTAL PROTEIN 7.1 g/dL (6.4-8.2)
[2017-10-19 06:29] LABS: CLARITY,URINE BLOODY; COLOR,URINE RED
[2017-10-19 06:34] LABS: BACTERIA,URINE 0 /HPF (0-FEW); RBC,URINE TNTC /HPF (0-2); WBC,URINE 0 /HPF (0-4)
[2017-10-19] MEDS: INSULIN LISPRO 300 UNITS/3 ML INSULN.PEN. SQ SCH ×3 (07:59→16:47)
[2017-10-19 11:15] VITALS: BP 162/78
--- NOTE | 2017-10-19 12:06 | HP ---
ADMIT DATE: 10/19/2017 CHIEF COMPLAINT: Urinary retention and hematuria. HISTORY OF PRESENT ILLNESS: The patient is a pleasant 72-year-old male who actually has seen the urologist in the past. In fact, he has even had a cystoscopy within the past and he was supposedly total it was normal. He was in the ER last night with urinary retention. He apparently was instructed to self-catheterize himself, but got blood instead of urine. I discussed the case with ER physician. We are going to admit the patient and consult Urology. PAST MEDICAL HISTORY: Diabetes, hypertension, stroke, TIA, cholecystectomy, hip replacement. ALLERGIES: None. FAMILY HISTORY: Hypertension. SOCIAL HISTORY: He does not drink, smoke or take drugs. 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 He is . MEDICATIONS: Reviewed, please refer to the MRAD. REVIEW OF SYSTEMS: GENERAL: No history of weight change, weakness or fevers. SKIN: No bruising, hair changes or rashes. EYES: No blurred, double or loss of vision. NOSE AND THROAT: No history of nosebleeds, hoarseness or sore throat. HEART: No history of palpitations, chest pain or shortness of breath on exertion. LUNGS: Denies cough, hemoptysis, wheezing or shortness of breath. GASTROINTESTINAL: Denies changes in appetite, nausea, vomiting, diarrhea or constipation. GENITOURINARY: He complains of hematuria. NEUROLOGIC: Denies history of numbness, tingling, tremor or weakness. PSYCHIATRIC: No history of panic, anxiety or depression. ENDOCRINE: No history of heat or cold intolerance, polyuria or polydipsia. EXTREMITIES: Denies muscle weakness, joint pain, pain on walking or stiffness. PHYSICAL EXAMINATION: VITAL SIGNS: Temperature afebrile, pulse 80, respirations 18, blood pressure 162/78. GENERAL: He is alert, cooperative. His is present. She is a good support for him. HEART: Normal S1, S2. LUNGS: Clear. ABDOMEN: Soft, obese. EXTREMITIES: Trace edema. SKIN: No rashes. ENDOCRINE: No thyromegaly. LYMPHATICS: No cervical nodes. HEMATOPOIETIC: No bruising. GENITOURINARY: He has got a Downs catheter in place with a lot of blood. LABORATORY DATA: Hematology is normal. Electrolytes are normal. ASSESSMENT AND PLAN: Hematuria and urinary retention. I suspect he does have prostate issues. The patient has been admitted. We are going to place a continuous bladder irrigation and consult Urology. Resume home meds, IV fluids, frequent labs. GARDENIA DIOP DO DR: BEBETO/tricia JOB#: [id number] / [id number]
--- NOTE | 2017-10-19 13:11 | PDOC2 ---
UROLOGY CONSULT Date of Admission DATE: 10/19/17 TIME: 12:31 Reason for Consult: gh BPH w luts with recent dx of aur and psa 4 range. Had cysto [address] Bradley with reported no abnormalities. Told to SIC to help with incomplete emptying and LUTS. UDS plans for 10.31.17. Pt having trouble with SIC and gh with caths. Came to ED, had >1Liter w some clots. CBI has been started, mostly clear urine. NC-CT with 6cm right UP mass. No pain, no abd mass. ROS ROS: RESPIRATORY: Shortness of breath denies. Cough denies. UROLOGY: +blood in urine. +difficulty urinating Past Surgical History: Cholecystectomy, Total hip replacement Current Medications Current Medications Sodium Chloride 1,000 ml @ 1,000 mls/hr 1X ONCE IV Last administered on at 04:56; Start 10/19/17 at 05:00; Stop 10/19/17 at 05:59; Status DC Ondansetron HCl (Zofran) 4 mg PRN Q8HRS PRN IV NAUSEA/VOMITING 1ST CHOICE; Start 10/19/17 at 05:30; Stop 10/20/17 at 05:29 Insulin Human Lispro (HumaLOG) 0-5 UNITS TIDWMEALS SQ ; Start 10/19/17 at 08:00 Dextrose (Dextrose 50%-Water Syringe) 12.5 gm PRN Q15MIN PRN IV SEE COMMENTS; Start 10/19/17 at 05:30 Active Scripts Active Clopidogrel (Clopidogrel Bisulfate) 75 Mg Tablet 75 Mg PO DAILYWBKFT Atorvastatin Calcium 40 Mg Tablet 40 Mg PO QHS Aspir 81 (Aspirin) 81 Mg Tablet. 1 Tab PO DAILY Reported Senna-Docusate Sodium Tablet (Sennosides/Docusate Sodium) 1 Each Tablet 1 Each PO DAILYWBKFT Ferrous Sulfate 325 Mg Tablet 1 Tab PO DAILY Hydrocodone-Apap 7.5-325 (Hydrocodone Bit/Acetaminophen) 1 Each Tablet 1 Tab PO PRN Q4HRS PRN Metformin Hcl 1,000 Mg Tablet 1,000 Mg PO BIDWMEALS Amlodipine Besylate 5 Mg Tablet 5 Mg PO DAILY last dos this am next dose tomorrow am Glimepiride 4 Mg Tablet 1 Tab PO DAILY Benazepril Hcl 40 Mg Tablet 1 Tab PO DAILY last dose last night -- next dose tonight-- Saturday Allergies: Coded Allergies: No Known Drug Allergies (Unverified , 12/29/16) Physical Examination PHYSICAL EXAMINATION: GENERAL: Gen. appearance: No acute distress. Mood/affect: Pleasant. HEENT: Head: Normocephalic, atraumatic. Airway Impairment: No. CHEST: Shape and expansion: Normal. Expansion: Normal. SKIN: General: Warm. Color: Good. GENITOURINARY:External genitalia - wnl. NEUROLOGICAL: Mental status: Alert and oriented 3. Language: Normal. DOES THIS PATIENT HAVE URINARY: Yes VITALS Vital Signs Date Time Temp Pulse Resp B/P (MAP) Pulse Ox O2 Delivery O2 Flow Rate FiO2 10/19/17 11:15 97.6 71 18 162/78 (106) 94 Room Air 97.6 Labs Laboratory Tests Test 10/19/17 04:55 10/19/17 05:10 10/19/17 06:00 10/19/17 07:35 White Blood Count 9.6 x10^3/uL (4.0-11.0) Red Blood Count 4.56 x10^6/uL (4.30-5.70) Hemoglobin 13.1 g/dL (13.0-17.5) Hematocrit 39.1 % (39.0-53.0) Mean Corpuscular Volume 86 fL (79-100) Mean Corpuscular Hemoglobin 29 pg (25-35) Mean Corpuscular Hemoglobin Concent 34 g/dL (31-37) Red Cell Distribution Width 14.5 % (11.5-14.5) Platelet Count 346 x10^3/uL (140-400) Neutrophils (%) (Auto) 67 % (31-73) Lymphocytes (%) (Auto) 19 % (24-48) Monocytes (%) (Auto) 9 % (0-9) Eosinophils (%) (Auto) 5 % (0-3) Basophils (%) (Auto) 1 % (0-3) Neutrophils # (Auto) 6.4 x10^3uL (1.8-7.7) Lymphocytes # (Auto) 1.8 x10^3/uL (1.0-4.8) Monocytes # (Auto) 0.9 x10^3/uL (0.0-1.1) Eosinophils # (Auto) 0.5 x10^3/uL (0.0-0.7) Basophils # (Auto) 0.1 x10^3/uL (0.0-0.2) Prothrombin Time 12.8 SEC (11.7-14.0) Prothromb Time International Ratio 1.0 (0.8-1.1) Activated Partial Thromboplast Time 28 SEC (24-38) Sodium Level 139 mmol/L (136-145) Potassium Level 4.4 mmol/L (3.5-5.1) Chloride Level 104 mmol/L (98-107) Carbon Dioxide Level 27 mmol/L (21-32) Anion Gap 8 (6-14) Blood Urea Nitrogen 14 mg/dL (8-26) Creatinine 1.1 mg/dL (0.7-1.3) Estimated GFR (Cockcroft-Gault) 65.4 BUN/Creatinine Ratio 13 (6-20) Glucose Level 139 mg/dL (70-99) Calcium Level 8.9 mg/dL (8.5-10.1) Magnesium Level 2.0 mg/dL (1.8-2.4) Total Bilirubin 0.4 mg/dL (0.2-1.0) Aspartate Amino Transf (AST/SGOT) 18 U/L (15-37) Alanine Aminotransferase (ALT/SGPT) 18 U/L (16-63) Alkaline Phosphatase 116 U/L (46-116) Total Protein 7.1 g/dL (6.4-8.2) Albumin 3.4 g/dL (3.4-5.0) Albumin/Globulin Ratio 0.9 (1.0-1.7) Lipase 115 U/L (73-393) Urine Collection Type Unknown Urine Color Red Urine Clarity Bloody Urine pH Urine Specific [place] 1.015 Urine Protein mg/dL (NEG-TRACE) Urine Glucose (UA) mg/dL (NEG) Urine Ketones (Stick) mg/dL (NEG) Urine Blood (NEG) Urine Nitrite (NEG) Urine Bilirubin (NEG) Urine Urobilinogen Dipstick mg/dL (0.2 mg/dL) Urine Leukocyte Esterase (NEG) Urine RBC Tntc /HPF (0-2) Urine WBC 0 /HPF (0-4) Urine Bacteria 0 /HPF (0-FEW) Glucose (Fingerstick) 119 mg/dL (70-99) Laboratory Tests Test 10/19/17 04:55 10/19/17 05:10 10/19/17 06:00 10/19/17 07:35 White Blood Count 9.6 x10^3/uL (4.0-11.0) Red Blood Count 4.56 x10^6/uL (4.30-5.70) Hemoglobin 13.1 g/dL (13.0-17.5) Hematocrit 39.1 % (39.0-53.0) Mean Corpuscular Volume 86 fL (79-100) Mean Corpuscular Hemoglobin 29 pg (25-35) Mean Corpuscular Hemoglobin Concent 34 g/dL (31-37) Red Cell Distribution Width 14.5 % (11.5-14.5) Platelet Count 346 x10^3/uL (140-400) Neutrophils (%) (Auto) 67 % (31-73) Lymphocytes (%) (Auto) 19 % (24-48) Monocytes (%) (Auto) 9 % (0-9) Eosinophils (%) (Auto) 5 % (0-3) Basophils (%) (Auto) 1 % (0-3) Neutrophils # (Auto) 6.4 x10^3uL (1.8-7.7) Lymphocytes # (Auto) 1.8 x10^3/uL (1.0-4.8) Monocytes # (Auto) 0.9 x10^3/uL (0.0-1.1) Eosinophils # (Auto) 0.5 x10^3/uL (0.0-0.7) Basophils # (Auto) 0.1 x10^3/uL (0.0-0.2) Prothrombin Time 12.8 SEC (11.7-14.0) Prothromb Time International Ratio 1.0 (0.8-1.1) Activated Partial Thromboplast Time 28 SEC (24-38) Sodium Level 139 mmol/L (136-145) Potassium Level 4.4 mmol/L (3.5-5.1) Chloride Level 104 mmol/L (98-107) Carbon Dioxide Level 27 mmol/L (21-32) Anion Gap 8 (6-14) Blood Urea Nitrogen 14 mg/dL (8-26) Creatinine 1.1 mg/dL (0.7-1.3) Estimated GFR (Cockcroft-Gault) 65.4 BUN/Creatinine Ratio 13 (6-20) Glucose Level 139 mg/dL (70-99) Calcium Level 8.9 mg/dL (8.5-10.1) Magnesium Level 2.0 mg/dL (1.8-2.4) Total Bilirubin 0.4 mg/dL (0.2-1.0) Aspartate Amino Transf (AST/SGOT) 18 U/L (15-37) Alanine Aminotransferase (ALT/SGPT) 18 U/L (16-63) Alkaline Phosphatase 116 U/L (46-116) Total Protein 7.1 g/dL (6.4-8.2) Albumin 3.4 g/dL (3.4-5.0) Albumin/Globulin Ratio 0.9 (1.0-1.7) Lipase 115 U/L (73-393) Urine Collection Type Unknown Urine Color Red Urine Clarity Bloody Urine pH Urine Specific [place] 1.015 Urine Protein mg/dL (NEG-TRACE) Urine Glucose (UA) mg/dL (NEG) Urine Ketones (Stick) mg/dL (NEG) Urine Blood (NEG) Urine Nitrite (NEG) Urine Bilirubin (NEG) Urine Urobilinogen Dipstick mg/dL (0.2 mg/dL) Urine Leukocyte Esterase (NEG) Urine RBC Tntc /HPF (0-2) Urine WBC 0 /HPF (0-4) Urine Bacteria 0 /HPF (0-FEW) Glucose (Fingerstick) 119 mg/dL (70-99) Assessment/Plan gh. aur. renal mass. CBI is started. Manually irrigated 100ml of clots. NS overhead bags. If clear by am, will switch to 16fr jacques and dc home. Will get contrast study and ureter delays for renal mass characterization and GH w/u completion. Past Medical History: Diabetes-Type II, Hypertension, Stroke, TIA IVÁN VERNON MD Oct 19, 2017 13:11
[2017-10-19] MEDS ORDERED: CONTRAST GIVEN. MC PRN (14:00)
[2017-10-19] MEDS ORDERED: IOHEXOL 300 MG/ML 100ML VIAL. IV ONE (14:00)
[2017-10-19] MEDS ORDERED: CLOP75TA PO (14:16)
[2017-10-19] MEDS ORDERED: HYDROcodone/APAP 7.5/325MG 1 TAB TABLET PO PRN (14:30)
[2017-10-19 15:00] VITALS: BP 167/85
[2017-10-19] MEDS ORDERED: CLOPIDOGREL BISULFATE 75 MG TABLET PO SCH (15:00)
[2017-10-19] MEDS: GLIMEPIRIDE 2 MG TABLET. PO SCH (15:19)
[2017-10-19] MEDS: ASPIRIN ENTERIC COATED 81 MG TABLET.DR. PO SCH (15:19)
[2017-10-19] MEDS: FERROUS SULFATE 325 MG TABLET. PO SCH (15:19)
[2017-10-19] MEDS: SENNOSIDES/DOCUSATE 8.6/50MG TABLET. PO SCH (15:20)
[2017-10-19] MEDS: LISINOPRIL 20 MG TABLET PO SCH (15:22)
[2017-10-19] MEDS: amLODIPine BESYLATE 5 MG TABLET PO SCH (15:22)
--- NOTE | 2017-10-19 15:26 | RAD ---
CT study of the abdomen and pelvis with contrast Clinical indications: Urinary retention and hematuria for [address] study of the abdomen and pelvis without contrast performed earlier today. Please see that report. TECHNIQUE: After IV infusion of 75 cc Omnipaque 300, helical CT scanning of both kidneys was performed at [address] scanning of the abdomen and pelvis was performed at 10 minutes. FINDINGS: The liver and spleen and pancreas are unremarkable. The gallbladder is surgically absent. The extra hepatic bile duct is mildly prominent secondary to the cholecystectomy. No adrenal mass is evident. Again seen is the 6 cm hypodense lesion of the superior aspect of the right kidney. There is no internal septation or internal enhancement. It measures 30 Hounsfield units which is denser than a simple cyst. Again, the cystic nature of this lesion may be confirmed with sonography. No hydronephrosis or hydroureter is seen on either side. There is scarring of both kidneys consistent with chronic pyelonephritis. There is incomplete opacification of the proximal left ureter. No other filling defect is seen within either renal collecting system. There is streaking artifact in the pelvis related to bilateral hip prostheses. This partially obscures the urinary bladder. Air is seen within the urinary bladder secondary to a Odwns catheter. No other filling defect is evident within the urinary bladder. No focal aneurysmal dilatation of the abdominal aorta is seen. No enlarged abdominal or pelvic lymphadenopathy is evident. The appendix is normal and no obstructive bowel pattern is evident. Colonic diverticulosis is seen without diverticulitis. No free air or free fluid is evident. No lung base consolidation is evident. No osteolytic process is seen. IMPRESSION: Chronic pyelonephritis of both kidneys. Probable hyperdense 6 cm cyst of the upper pole right kidney. Recommend renal sonography for further evaluation. Electronically signed by: Humza Agarwal MD (10/19/2017 3:23 PM) [facility]
[2017-10-19 19:00] VITALS: BP 136/65
[2017-10-19] MEDS ORDERED: ATORVASTATIN CALCIUM 40 MG TABLET. PO SCH (21:00)
[2017-10-19 23:00] VITALS: BP 133/69
[2017-10-20 03:00] VITALS: BP 158/80
[2017-10-20 05:07] LABS: BASO % 0 % (0-3); EOS # 0.6 x10^3/uL (0.0-0.7); EOS % 6 % (0-3); LYMPH # 1.8 x10^3/uL (1.0-4.8); LYMPH % 18 % (24-48); MEAN CORPUSCULAR HEMOGLOBIN 29 pg (25-35); MEAN CORPUSCULAR HGB CONC 33 g/dL (31-37); MEAN CORPUSCULAR VOLUME 86 fL (79-100); MONO # 1.1 x10^3/uL (0.0-1.1); MONO % 11 % (0-9); NEUT # 6.4 x10^3uL (1.8-7.7); NEUT % 64 % (31-73); PLATELET COUNT 299 x10^3/uL (140-400); RED BLOOD COUNT 4.56 x10^6/uL (4.30-5.70); RED CELL DISTRIBUTION WIDTH 14.5 % (11.5-14.5)
[2017-10-20 05:24] LABS: CALCIUM 8.5 mg/dL (8.5-10.1); POTASSIUM 4.1 mmol/L (3.5-5.1)
[2017-10-20 07:00] VITALS: BP 167/74
[2017-10-20] MEDS: INSULIN LISPRO 300 UNITS/3 ML INSULN.PEN. SQ SCH ×2 (08:00→12:00)
[2017-10-20] MEDS: FERROUS SULFATE 325 MG TABLET. PO SCH (08:06)
[2017-10-20] MEDS: amLODIPine BESYLATE 5 MG TABLET PO SCH (08:06)
[2017-10-20] MEDS: ASPIRIN ENTERIC COATED 81 MG TABLET.DR. PO SCH (08:06)
[2017-10-20] MEDS: GLIMEPIRIDE 2 MG TABLET. PO SCH (08:06)
[2017-10-20] MEDS: SENNOSIDES/DOCUSATE 8.6/50MG TABLET. PO SCH (08:06)
[2017-10-20] MEDS: LISINOPRIL 20 MG TABLET PO SCH (08:07)
[2017-10-20 11:00] VITALS: BP 107/68
--- NOTE | 2017-10-20 12:45 | PDOC ---
Progress Note Subjective Subjective no acute events. CBI clear and 24fr [address] way cath changed to 16fr cath for comfort. Staying clear. 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, oriented x 3, no focal neurologic deficit SKIN: No rash IV: ok Labs Lab Laboratory Tests Test 10/19/17 16:37 10/19/17 20:57 10/20/17 03:45 10/20/17 11:03 Glucose (Fingerstick) 121 mg/dL (70-99) 204 mg/dL (70-99) 188 mg/dL (70-99) White Blood Count 10.0 x10^3/uL (4.0-11.0) Red Blood Count 4.56 x10^6/uL (4.30-5.70) Hemoglobin 13.0 g/dL (13.0-17.5) Hematocrit 39.0 % (39.0-53.0) Mean Corpuscular Volume 86 fL (79-100) Mean Corpuscular Hemoglobin 29 pg (25-35) Mean Corpuscular Hemoglobin Concent 33 g/dL (31-37) Red Cell Distribution Width 14.5 % (11.5-14.5) Platelet Count 299 x10^3/uL (140-400) Neutrophils (%) (Auto) 64 % (31-73) Lymphocytes (%) (Auto) 18 % (24-48) Monocytes (%) (Auto) 11 % (0-9) Eosinophils (%) (Auto) 6 % (0-3) Basophils (%) (Auto) 0 % (0-3) Neutrophils # (Auto) 6.4 x10^3uL (1.8-7.7) Lymphocytes # (Auto) 1.8 x10^3/uL (1.0-4.8) Monocytes # (Auto) 1.1 x10^3/uL (0.0-1.1) Eosinophils # (Auto) 0.6 x10^3/uL (0.0-0.7) Basophils # (Auto) 0.0 x10^3/uL (0.0-0.2) Sodium Level 139 mmol/L (136-145) Potassium Level 4.1 mmol/L (3.5-5.1) Chloride Level 105 mmol/L (98-107) Carbon Dioxide Level 28 mmol/L (21-32) Anion Gap 6 (6-14) Blood Urea Nitrogen 13 mg/dL (8-26) Creatinine 1.0 mg/dL (0.7-1.3) Estimated GFR (Cockcroft-Gault) 73.0 Glucose Level 128 mg/dL (70-99) Calcium Level 8.5 mg/dL (8.5-10.1) Objective Assessment gh. renal cyst. Plan Plan of Care AUR, GH. Does not want to do ISC. leave cath in place till UDS 9.13.18. Right renal cyst, 6cm. Anderson 2, fu 6-9mos with JJ. May dc home from gu standpoint. IVÁN VERNON MD Oct 20, 2017 12:45
--- NOTE | 2017-10-20 14:52 | PDOC ---
PROGRESS NOTES Chief Complaint Chief Complaint CC: Urinary retention; hematuria Past Cystoscopy (normal) DM HTN Stroke TIA Cholecystectomy Hip replacement History of Present Illness History of Present Illness Pt. seen and examined Pt. alert and oriented Pt. at baseline DW nursing Pt. expressed desire for discharge; Pt. 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, oriented x 3, no focal neurologic deficit SKIN: No rash IV: ok General: Alert, Oriented X3, Cooperative, No acute distress Heart: Regular rate, Normal S1, Normal S2 Lungs: Clear Abdomen: Normal bowel sounds, Soft, No tenderness Extremities: No clubbing, No cyanosis Skin: No rashes Labs LABS Laboratory Tests Test 10/19/17 16:37 10/19/17 20:57 10/20/17 03:45 10/20/17 11:03 Glucose (Fingerstick) 121 mg/dL (70-99) 204 mg/dL (70-99) 188 mg/dL (70-99) White Blood Count 10.0 x10^3/uL (4.0-11.0) Red Blood Count 4.56 x10^6/uL (4.30-5.70) Hemoglobin 13.0 g/dL (13.0-17.5) Hematocrit 39.0 % (39.0-53.0) Mean Corpuscular Volume 86 fL (79-100) Mean Corpuscular Hemoglobin 29 pg (25-35) Mean Corpuscular Hemoglobin Concent 33 g/dL (31-37) Red Cell Distribution Width 14.5 % (11.5-14.5) Platelet Count 299 x10^3/uL (140-400) Neutrophils (%) (Auto) 64 % (31-73) Lymphocytes (%) (Auto) 18 % (24-48) Monocytes (%) (Auto) 11 % (0-9) Eosinophils (%) (Auto) 6 % (0-3) Basophils (%) (Auto) 0 % (0-3) Neutrophils # (Auto) 6.4 x10^3uL (1.8-7.7) Lymphocytes # (Auto) 1.8 x10^3/uL (1.0-4.8) Monocytes # (Auto) 1.1 x10^3/uL (0.0-1.1) Eosinophils # (Auto) 0.6 x10^3/uL (0.0-0.7) Basophils # (Auto) 0.0 x10^3/uL (0.0-0.2) Sodium Level 139 mmol/L (136-145) Potassium Level 4.1 mmol/L (3.5-5.1) Chloride Level 105 mmol/L (98-107) Carbon Dioxide Level 28 mmol/L (21-32) Anion Gap 6 (6-14) Blood Urea Nitrogen 13 mg/dL (8-26) Creatinine 1.0 mg/dL (0.7-1.3) Estimated GFR (Cockcroft-Gault) 73.0 Glucose Level 128 mg/dL (70-99) Calcium Level 8.5 mg/dL (8.5-10.1) Review of Systems Review of Systems Pt. denies abd. pain Pt. denies weakness Assessment and Plan Assessmemt and Plan CC: (1) Hematuria (2) Urinary retention Assessment: Urinary retention; hematuria Past Cystoscopy (normal) DM HTN Stroke TIA Cholecystectomy Hip replacement Plan: Pt. discharged home Continue home meds; pt. instructed to withhold metformin for at least 48 hrs PT/OT Continue current diet Fu w/ urology if reoccurrence of urinary retention or hematuria Comment Review of Relevant I have reviewed the following items michaela (where applicable) has been applied. Labs Laboratory Tests Test 10/19/17 04:55 10/19/17 05:10 10/19/17 06:00 10/19/17 07:35 White Blood Count 9.6 x10^3/uL (4.0-11.0) Red Blood Count 4.56 x10^6/uL (4.30-5.70) Hemoglobin 13.1 g/dL (13.0-17.5) Hematocrit 39.1 % (39.0-53.0) Mean Corpuscular Volume 86 fL (79-100) Mean Corpuscular Hemoglobin 29 pg (25-35) Mean Corpuscular Hemoglobin Concent 34 g/dL (31-37) Red Cell Distribution Width 14.5 % (11.5-14.5) Platelet Count 346 x10^3/uL (140-400) Neutrophils (%) (Auto) 67 % (31-73) Lymphocytes (%) (Auto) 19 % (24-48) Monocytes (%) (Auto) 9 % (0-9) Eosinophils (%) (Auto) 5 % (0-3) Basophils (%) (Auto) 1 % (0-3) Neutrophils # (Auto) 6.4 x10^3uL (1.8-7.7) Lymphocytes # (Auto) 1.8 x10^3/uL (1.0-4.8) Monocytes # (Auto) 0.9 x10^3/uL (0.0-1.1) Eosinophils # (Auto) 0.5 x10^3/uL (0.0-0.7) Basophils # (Auto) 0.1 x10^3/uL (0.0-0.2) Prothrombin Time 12.8 SEC (11.7-14.0) Prothromb Time International Ratio 1.0 (0.8-1.1) Activated Partial Thromboplast Time 28 SEC (24-38) Sodium Level 139 mmol/L (136-145) Potassium Level 4.4 mmol/L (3.5-5.1) Chloride Level 104 mmol/L (98-107) Carbon Dioxide Level 27 mmol/L (21-32) Anion Gap 8 (6-14) Blood Urea Nitrogen 14 mg/dL (8-26) Creatinine 1.1 mg/dL (0.7-1.3) Estimated GFR (Cockcroft-Gault) 65.4 BUN/Creatinine Ratio 13 (6-20) Glucose Level 139 mg/dL (70-99) Calcium Level 8.9 mg/dL (8.5-10.1) Magnesium Level 2.0 mg/dL (1.8-2.4) Total Bilirubin 0.4 mg/dL (0.2-1.0) Aspartate Amino Transf (AST/SGOT) 18 U/L (15-37) Alanine Aminotransferase (ALT/SGPT) 18 U/L (16-63) Alkaline Phosphatase 116 U/L (46-116) Total Protein 7.1 g/dL (6.4-8.2) Albumin 3.4 g/dL (3.4-5.0) Albumin/Globulin Ratio 0.9 (1.0-1.7) Lipase 115 U/L (73-393) Urine Collection Type Unknown Urine Color Red Urine Clarity Bloody Urine pH Urine Specific [place] 1.015 Urine Protein mg/dL (NEG-TRACE) Urine Glucose (UA) mg/dL (NEG) Urine Ketones (Stick) mg/dL (NEG) Urine Blood (NEG) Urine Nitrite (NEG) Urine Bilirubin (NEG) Urine Urobilinogen Dipstick mg/dL (0.2 mg/dL) Urine Leukocyte Esterase (NEG) Urine RBC Tntc /HPF (0-2) Urine WBC 0 /HPF (0-4) Urine Bacteria 0 /HPF (0-FEW) Glucose (Fingerstick) 119 mg/dL (70-99) Test 10/19/17 11:58 10/19/17 16:37 10/19/17 20:57 10/20/17 03:45 Glucose (Fingerstick) 103 mg/dL (70-99) 121 mg/dL (70-99) 204 mg/dL (70-99) White Blood Count 10.0 x10^3/uL (4.0-11.0) Red Blood Count 4.56 x10^6/uL (4.30-5.70) Hemoglobin 13.0 g/dL (13.0-17.5) Hematocrit 39.0 % (39.0-53.0) Mean Corpuscular Volume 86 fL (79-100) Mean Corpuscular Hemoglobin 29 pg (25-35) Mean Corpuscular Hemoglobin Concent 33 g/dL (31-37) Red Cell Distribution Width 14.5 % (11.5-14.5) Platelet Count 299 x10^3/uL (140-400) Neutrophils (%) (Auto) 64 % (31-73) Lymphocytes (%) (Auto) 18 % (24-48) Monocytes (%) (Auto) 11 % (0-9) Eosinophils (%) (Auto) 6 % (0-3) Basophils (%) (Auto) 0 % (0-3) Neutrophils # (Auto) 6.4 x10^3uL (1.8-7.7) Lymphocytes # (Auto) 1.8 x10^3/uL (1.0-4.8) Monocytes # (Auto) 1.1 x10^3/uL (0.0-1.1) Eosinophils # (Auto) 0.6 x10^3/uL (0.0-0.7) Basophils # (Auto) 0.0 x10^3/uL (0.0-0.2) Sodium Level 139 mmol/L (136-145) Potassium Level 4.1 mmol/L (3.5-5.1) Chloride Level 105 mmol/L (98-107) Carbon Dioxide Level 28 mmol/L (21-32) Anion Gap 6 (6-14) Blood Urea Nitrogen 13 mg/dL (8-26) Creatinine 1.0 mg/dL (0.7-1.3) Estimated GFR (Cockcroft-Gault) 73.0 Glucose Level 128 mg/dL (70-99) Calcium Level 8.5 mg/dL (8.5-10.1) Test 10/20/17 11:03 Glucose (Fingerstick) 188 mg/dL (70-99) Laboratory Tests Test 10/19/17 16:37 10/19/17 20:57 10/20/17 03:45 10/20/17 11:03 Glucose (Fingerstick) 121 mg/dL (70-99) 204 mg/dL (70-99) 188 mg/dL (70-99) White Blood Count 10.0 x10^3/uL (4.0-11.0) Red Blood Count 4.56 x10^6/uL (4.30-5.70) Hemoglobin 13.0 g/dL (13.0-17.5) Hematocrit 39.0 % (39.0-53.0) Mean Corpuscular Volume 86 fL (79-100) Mean Corpuscular Hemoglobin 29 pg (25-35) Mean Corpuscular Hemoglobin Concent 33 g/dL (31-37) Red Cell Distribution Width 14.5 % (11.5-14.5) Platelet Count 299 x10^3/uL (140-400) Neutrophils (%) (Auto) 64 % (31-73) Lymphocytes (%) (Auto) 18 % (24-48) Monocytes (%) (Auto) 11 % (0-9) Eosinophils (%) (Auto) 6 % (0-3) Basophils (%) (Auto) 0 % (0-3) Neutrophils # (Auto) 6.4 x10^3uL (1.8-7.7) Lymphocytes # (Auto) 1.8 x10^3/uL (1.0-4.8) Monocytes # (Auto) 1.1 x10^3/uL (0.0-1.1) Eosinophils # (Auto) 0.6 x10^3/uL (0.0-0.7) Basophils # (Auto) 0.0 x10^3/uL (0.0-0.2) Sodium Level 139 mmol/L (136-145) Potassium Level 4.1 mmol/L (3.5-5.1) Chloride Level 105 mmol/L (98-107) Carbon Dioxide Level 28 mmol/L (21-32) Anion Gap 6 (6-14) Blood Urea Nitrogen 13 mg/dL (8-26) Creatinine 1.0 mg/dL (0.7-1.3) Estimated GFR (Cockcroft-Gault) 73.0 Glucose Level 128 mg/dL (70-99) Calcium Level 8.5 mg/dL (8.5-10.1) Medications Current Medications Sodium Chloride 1,000 ml @ 1,000 mls/hr 1X ONCE IV Last administered on at 04:56; Start 10/19/17 at 05:00; Stop 10/19/17 at 05:59; Status DC Ondansetron HCl (Zofran) 4 mg PRN Q8HRS PRN IV NAUSEA/VOMITING 1ST CHOICE; Start 10/19/17 at 05:30; Stop 10/20/17 at 05:29; Status DC Insulin Human Lispro (HumaLOG) 0-5 UNITS TIDWMEALS SQ ; Start 10/19/17 at 08:00; Stop 10/20/17 at 13:54; Status DC Dextrose (Dextrose 50%-Water Syringe) 12.5 gm PRN Q15MIN PRN IV SEE COMMENTS; Start 10/19/17 at 05:30; Stop 10/20/17 at 13:54; Status DC Iohexol (Omnipaque 300 Mg/ml) 75 ml 1X ONCE IV Last administered on 10/19/17at 14:00; Start 10/19/17 at 14:00; Stop 10/19/17 at 14:01; Status DC Info (CONTRAST GIVEN -- Rx MONITORING) 1 each PRN DAILY PRN MC SEE COMMENTS; Start 10/19/17 at 14:00; Stop 10/20/17 at 13:54; Status DC Amlodipine Besylate (Norvasc) 5 mg DAILY PO Last administered on 10/20/17at 08:06 ; Start 10/19/17 at 15:00; Stop 10/20/17 at 13:54; Status DC Aspirin (Ecotrin) 81 mg DAILY08 PO Last administered on 10/20/17at 08:06; Start 10/19/17 at 15:00; Stop 10/20/17 at 13:54; Status DC Atorvastatin Calcium (Lipitor) 40 mg QHS PO Last administered on 10/19/17at 21:07 ; Start 10/19/17 at 21:00; Stop 10/20/17 at 13:54; Status DC Clopidogrel Bisulfate (Plavix) 75 mg QODAY PO ; Start 10/19/17 at 15:00; Stop 10/19/17 at 15:00; Status DC Ferrous Sulfate (Feosol) 325 mg DAILY08 PO Last administered on 10/20/17at 08:06 ; Start 10/19/17 at 15:00; Stop 10/20/17 at 13:54; Status DC Acetaminophen/ Hydrocodone Bitart (Lortab 7.5/325) 1 tab PRN Q4HRS PRN PO PAIN ; Start 10/19/17 at 14:30; Stop 10/20/17 at 13:54; Status DC Senna/Docusate Sodium (Senna Plus) 1 tab DAILYWBKFT PO Last administered on 10/20at 08:06; Start 10/19/17 at 15:00; Stop 10/20/17 at 13:54; Status DC Lisinopril (Prinivil) 40 mg DAILY PO Last administered on 10/20/17at 08:07; Start 10/19/17 at 15:00; Stop 10/20/17 at 13:54; Status DC Glimepiride (Amaryl) 4 mg DAILY08 PO Last administered on 10/20/17at 08:06; Start 10/19/17 at 15:00; Stop 10/20/17 at 13:54; Status DC Metformin HCl (Glucophage) 1,000 mg BIDWMEALS PO ; Start 10/21/17 at 17:00; Stop 10/21/17 at 17:00; Status DC Clopidogrel Bisulfate (Plavix) 75 mg QODAY PO ; Start 10/21/17 at 09:00; Stop 10/21/17 at 09:00; Status DC Active Scripts Active Atorvastatin Calcium 40 Mg Tablet 40 Mg PO QHS Aspir 81 (Aspirin) 81 Mg Tablet.dr 1 Tab PO DAILY Reported Clopidogrel (Clopidogrel Bisulfate) 75 Mg Tablet 1 Tab PO QODAY Senna-Docusate Sodium Tablet (Sennosides/Docusate Sodium) 1 Each Tablet 1 Each PO [id number] Ferrous Sulfate 325 Mg Tablet 1 Tab PO DAILY Hydrocodone-Apap 7.5-325 (Hydrocodone Bit/Acetaminophen) 1 Each Tablet 1 Tab PO PRN Q4HRS PRN Amlodipine Besylate 5 Mg Tablet 5 Mg PO DAILY last dos this am next dose tomorrow am Glimepiride 4 Mg Tablet 1 Tab PO DAILY Benazepril Hcl 40 Mg Tablet 1 Tab PO DAILY last dose last night -- next dose tonight-- Saturday Vitals/I & O Vital Sign - Last 24 Hours 10/19/17 10/19/17 10/19/17 10/19/17 15:00 15:22 15:22 19:00 Temp 97.6 98.6 97.6 98.6 Pulse 73 74 74 77 Resp 18 18 B/P (MAP) 167/85 (112) 167/85 167/85 136/65 (88) Pulse Ox 94 90 O2 Delivery Room Air Room Air 10/19/17 10/19/17 10/20/17 10/20/17 20:30 23:00 03:00 07:00 Temp 98.9 98.3 96.7 98.9 98.3 96.7 Pulse 77 72 72 Resp 18 18 18 B/P (MAP) 133/69 (90) 158/80 (106) 167/74 (105) Pulse Ox 90 94 93 O2 Delivery Room Air Room Air Room Air Room Air 10/20/17 10/20/17 10/20/17 10/20/17 07:20 08:06 08:07 11:00 Temp 96.5 96.5 Pulse 72 72 84 Resp 18 B/P (MAP) 167/74 167/74 107/68 (81) Pulse Ox 90 O2 Delivery Room Air Room Air Intake and Output 10/19/17 10/19/17 10/20/17 15:00 23:00 07:00 Intake Total 120 ml 250 ml Output Total 4225 ml 1630 ml 2450 ml Balance -4225 ml -1510 ml -2200 ml GARDENIA DIOP III DO Oct 20, 2017 14:52
[2017-10-21] MEDS ORDERED: CLOPIDOGREL BISULFATE 75 MG TABLET PO SCH (09:00)
== END 2017-10-20 13:53 | disposition home or self-care (01) | DRG 726 ==
LOC: ER 04:02 → 4 NORTH 05:20
PROVIDERS: ADMIT Internal Medicine; ATTEND Internal Medicine
DX: N40.1 Benign prostatic hyperplasia with lower urinary tract symptoms (principal); R31.9 Hematuria, unspecified; E11.9 Type 2 diabetes mellitus without complications; I10 Essential (primary) hypertension; K57.30 Diverticulosis of large intestine without perforation or abscess without bleeding; N28.1 Cyst of kidney, acquired; Z96.649 Presence of unspecified artificial hip joint; R33.8 Other retention of urine; N28.89 Other specified disorders of kidney and ureter; Z82.49 Family history of ischemic heart disease and other diseases of the circulatory system; Z86.73 Personal history of transient ischemic attack (TIA), and cerebral infarction without residual deficits; Z90.49 Acquired absence of other specified parts of digestive tract; Z79.899 Other long term (current) drug therapy
CPT/HCPCS: 36415; 51702; 74176; 74177; 80048; 80053; 81001; 82962; 83690; 83735; 85025; 85610; 85730; 96360; J1815; J7030; Q9967; 99285-25

== ENCOUNTER 2017-11-21 11:58 | Day surgery (SDC) | payer MEDICARE ==
[~2017-11-21] VITALS: Ht 177.8 cm; Wt 140.6 kg
[~2017-11-21 11:58] MED LIST changes: +FINA5TAB4 PO; +HYDROmorphone 2 MG/ML VIAL IV PRN; +IV RINGERS,LACTATED 1000ML 1,000 ML IV SCH; +LIDOCAINE 1% PF 2 ML VIAL. ID PRN; +MORPHINE SULFATE 2 MG/ML VIAL. IV PRN; +ONDANSETRON PF 4 MG/2 ML VIAL. IV PRN; +PROCHLORPERAZINE 10 MG/2 ML VIAL. IV PRN; +fentaNYL PF VIAL 100 MCG/2 ML VIAL IV PRN
[2017-11-21] MEDS ORDERED: LIDOCAINE 2% JELLY 6ML IN APPLICATOR. ONE (12:17)
[2017-11-21] MEDS ORDERED: BUPIVAC MPF-EPI 0.5%-1:200000 30 ML VIAL. ONE (12:17)
[2017-11-21] MEDS ORDERED: PROPOFOL 20 ML IV ONE (12:49)
[2017-11-21] MEDS ORDERED: DEXAMETHASONE SOD PHOS 20 MG/5 ML VIAL. ONE (12:49)
[2017-11-21] MEDS ORDERED: ONDANSETRON PF 4 MG/2 ML VIAL. ONE (12:49)
[2017-11-21] MEDS ORDERED: ePHEDrine PF IN SALINE 50 MG/5 ML DISP.SYRIN IV ONE (14:10)
[2017-11-21] MEDS ORDERED: fentaNYL PF VIAL 100 MCG/2 ML VIAL ONE (14:11)
[2017-11-21] MEDS ORDERED: SEVOFLURANE 31 TO 60 MINUTES. IH ONE (14:46)
--- NOTE | 2017-11-21 15:04 | PDOC4 ---
OPERATIVE NOTE Date: Date: Nov 21, 2017 Pre-Op Diagnosis: BPH, urinary retention Post-Op Diagnosis: same Procedure Performed: Greenlight laser of prostate, suprapubic tube placement Surgeon: Destinee Krueger MD Anesthesia Type: general Blood Loss: 0 Specimans Obtained: none Findings: enlarged prostate, elevated bladder neck Complications: none Operative Note: see dictation DESTINEE KRUEGER MD Nov 21, 2017 15:03
--- NOTE | 2017-11-21 15:08 | DISCH ---
DISCHARGE INSTRUCTIONS Condition on Discharge Condition on Discharge: Stable Activity After Discharge Activity Instructions for Disc: Activity as tolerated Bathing Instructions: Shower-keep dressing dry, No Tub Bath until see Lifting Instructions after Dis: No heavy lifting, No pulling or pushing, Do not lift >10 pounds Weight Bearing Status after Di: As tolerated Diet after Discharge Diet after Discharge: Diabetic No Calorie Level Diet Texture: Regular Liquid Texture: Thin Liquid Swallowing Supervision: None needed Wound Incision Care Other wound/incision instructi: leg bag to suprapubic catheter Contacting the DRBenson after DC Call your doctor for: Concerns you may have Follow-Up Follow up with: Dr. Krueger 1 week Treatment/Equipment after DC Adaptive Equipment Issued: Front wheeled walker DESTINEE KRUEGER MD Nov 21, 2017 15:08
[2017-11-21] MEDS ORDERED: HYDR-971 PO (15:11)
[2017-11-21] MEDS ORDERED: HYDROcodone/APAP 5/325MG 1 TAB TABLET PO ONE (16:00)
[2017-11-21] MEDS ORDERED: HYDROcodone/APAP 5/325MG 1 TAB TABLET PO PRN (16:00)
[2017-11-21 16:30] VITALS: BP 146/74
--- NOTE | 2017-11-21 17:50 | OP ---
DATE OF SURGERY: 11/21/2017 SURGEON: Destinee Krueger MD BAG WORKER: None. PREOPERATIVE DIAGNOSES: 1. Benign prostatic hypertrophy. 2. Urinary retention. POSTOPERATIVE DIAGNOSES: 1. Benign prostatic hypertrophy. 2. Urinary retention. PROCEDURE PERFORMED: 1. GreenLight laser vaporization of the prostate. 2. Suprapubic tube placement. ANESTHESIA TYPE: General. INDICATIONS: This is a 72-year-old male with enlarged prostate and bladder outlet obstruction confirmed with urodynamics. He has been catheter dependent for a while. After discussion of risks, benefits and alternatives, he agreed to the above procedure. Informed consent was obtained. DESCRIPTION OF PROCEDURE: The patient was taken to the operating room and general anesthesia was induced. He was placed in the dorsal lithotomy position, sterilely prepped and draped after removal of the Downs catheter. A timeout was performed. The rigid cystoscope was advanced through the urethra and into the prostate. The bladder neck appeared elevated and narrowed. The GreenLight laser was then used to open the bladder neck at the 5 and 7 o'clock positions. The bladder was inspected and had a large capacity, but otherwise unremarkable. Both ureteral orifices were identified a far distance away from the bladder neck. The lateral lobes of the prostate were then vaporized. Hemostasis was excellent throughout the procedure. Both ureteral orifices were then visualized again and were free of injury. No energy was transmitted beyond the level of the prostate apex. The scope was then directed to the dome of the bladder. An incision was made in the suprapubic region 2 cm above the pubic bone. A suprapubic bladed trocar was then inserted through the incision and into the dome of the bladder. A 16-Honduran Councill catheter was advanced through the trocar and inflated in the bladder with return of clear urine. The sheath of the trocar was removed. The catheter was secured to the patient's skin with a suture. A sterile dressing was applied. The patient was then awakened, taken to the recovery room in stable condition. BLOOD LOSS: None. COMPLICATIONS: None. SPECIMEN: None. DESTINEE KRUEGER MD DR: JOSEF/tricia JOB#: [id number] / [id number]
[2017-11-24] MEDS ORDERED: APIX5TAB PO (12:58)
[2017-11-24] MEDS ORDERED: OXYB5TAB7 PO (12:58)
[2017-11-24] MEDS ORDERED: CEFP100T PO (12:58)
== END 2017-11-21 17:19 | disposition home or self-care (01) ==
LOC: SURG 11:58
PROVIDERS: ATTEND Urology
DX: N40.1 Benign prostatic hyperplasia with lower urinary tract symptoms (principal); N32.0 Bladder-neck obstruction; E78.00 Pure hypercholesterolemia, unspecified; E11.9 Type 2 diabetes mellitus without complications; I10 Essential (primary) hypertension; Z86.73 Personal history of transient ischemic attack (TIA), and cerebral infarction without residual deficits; Z90.49 Acquired absence of other specified parts of digestive tract; Z98.52 Vasectomy status; Z87.39 Personal history of other diseases of the musculoskeletal system and connective tissue; Z96.643 Presence of artificial hip joint, bilateral
CPT/HCPCS: 51040; 52648; 82962; A7015; J0690; J1100; J2405; J2704; J3010; J3490

== ENCOUNTER → 2019-11-10 | Outpatient (CLI) | payer MEDICARE ==
[2017-11-24 11:30] VITALS: BP 123/67
[~2019-11-10] MED LIST changes: -AMLO10TA6 PO; +AMLO10TA8 PO; +AMLO5TAB10 PO; -AMLO5TAB7 PO; +APIX5TAB PO; +CEFP100T PO; -GLIM4TAB2 PO; +GLIM4TAB8 PO; -HYDR-2762 PO; +HYDR-2765 PO; +HYDR-3164 PO; -HYDROmorphone 2 MG/ML VIAL IV PRN; -IV RINGERS,LACTATED 1000ML 1,000 ML IV SCH; -LIDOCAINE 1% PF 2 ML VIAL. ID PRN; -MORPHINE SULFATE 2 MG/ML VIAL. IV PRN; -ONDANSETRON PF 4 MG/2 ML VIAL. IV PRN; +OXYB5TAB10 PO; -PROCHLORPERAZINE 10 MG/2 ML VIAL. IV PRN; +SENN-161 PO; -SENN1TAB8 PO; -fentaNYL PF VIAL 100 MCG/2 ML VIAL IV PRN
== END | disposition home or self-care (01) ==
LOC: LAB 12:43
PROVIDERS: ATTEND Orthopaedic Surgery
DX: Z20.828 Contact with and (suspected) exposure to other viral communicable diseases (principal)
CPT/HCPCS: U0003-CS

== ENCOUNTER 2019-11-13 07:03 | Day surgery (SDC) | payer MEDICARE ==
[~2019-11-13 07:03] MED LIST changes: +HYDROmorphone 2 MG/ML VIAL IV PRN; +IV RINGERS,LACTATED 1000ML 1,000 ML IV SCH; +LIDOCAINE 1% PF 2 ML VIAL. ID PRN; +MORPHINE SULFATE 2 MG/ML VIAL. IV PRN; +ONDANSETRON PF 4 MG/2 ML VIAL. IV PRN; +PROCHLORPERAZINE 10 MG/2 ML VIAL. IV PRN; +ceFAZolin SODIUM 3 GM in IV DEXTROSE 5% 100ML 100 ML IV PRN; +fentaNYL PF VIAL 100 MCG/2 ML VIAL IV PRN
[2019-11-13] MEDS ORDERED: PROPOFOL 10 MG/ML (20ML) VIAL. IV ONE ×2 (07:36)
[2019-11-13] MEDS ORDERED: LIDOCAINE 1% PF 30 ML VIAL. ONE (08:07)
--- NOTE | 2019-11-13 08:23 | DISCH ---
DISCHARGE INSTRUCTIONS Condition on Discharge Condition on Discharge: Stable Activity After Discharge Activity Instructions for Disc: Other, see below (Fine motor activity permitted avoid hard grasping lifting pushing pulling but can write type eat etc.) Bathing Instructions: Shower-keep dressing dry Lifting Instructions after Dis: No heavy lifting, No pulling or pushing, Do not lift >10 pounds Weight Bearing Status after Di: As tolerated Diet after Discharge Diet after Discharge: Cardiac, Diabetic No Calorie Level Diet Texture: Regular Liquid Texture: Thin Liquid Swallowing Supervision: None needed Wound Incision Care Wound/Incision Care: Ice to area for comfort, Do not change dressing (Keep dressing intact unless soiled) Contacting the after DC Call your doctor for: Concerns you may have Follow-Up Follow up with: Dr. Lindo 10 days ANDRY LINDO MD Nov 13, 2019 08:23
[2019-11-13] MEDS ORDERED: HYDROcodone/APAP 5/325MG 1 TAB TABLET PO PRN (09:30)
[2019-11-13 09:36] VITALS: BP 173/64
--- NOTE | 2019-11-13 12:59 | PDOC4 ---
Operative Note Operative Note Date of surgery: 11/13/2019 Preoperative diagnosis: Right carpal tunnel syndrome Postoperative diagnosis: Same with moderate median nerve compression Operative procedure: Right carpal tunnel release Surgeon: [employer] Manager: Michael duong Anesthesia: General Estimated blood loss: 2 cc Complications: None Operative indications: Please see my preoperative orthopedic consultation notes for detailed operative indications. Note that he had confirmed EMG findings of carpal tunnel syndrome and we had talked through risks benefits postoperative course of the release procedure including the fact that he may not get an immediate or even complete relief over time that we take pressure off the nerve and the body has to re-myelinate and there may be possible complications of infection nerve or blood vessel damage continued pain especially around the incision medical or other anesthetic complications among others Operative text: Patient was identified procedure verified patient placed in the supine position on the operating table. After adequate amounts of general anesthesia were obtained a tourniquet was placed on the upper arm and the right upper extremity was prepped and draped in standard sterile fashion. After timeout was performed patient procedure identified and verified right upper extremity was exsanguinated by Esmarch bandage tourniquet inflated to 250 mmHg and a midline incision was made just distal to the distal palmar crease the transverse carpal ligament was identified and sharply resected using a scalpel and finished with tenotomy scissors completing the proximal and distal resection which was verified visually and by palpation to be complete. Median nerve was noted to have moderate compression. Thorough irrigation carried out normal saline solution closure accomplished with nylon suture in vertical mattress fashion sterile soft dressings were applied patient was returned to recovery room in stable condition having tolerated procedure well. Michael duong was present for the procedure and assisted in patient positioning prepping draping retraction closure and dressings ANDRY PALOMINO MD Nov 13, 2019 12:59
== END 2019-11-13 10:06 | disposition home or self-care (01) ==
LOC: SURG 07:03
PROVIDERS: ATTEND Orthopaedic Surgery
DX: G56.01 Carpal tunnel syndrome, right upper limb (principal); I10 Essential (primary) hypertension; E11.9 Type 2 diabetes mellitus without complications; E78.5 Hyperlipidemia, unspecified; Z79.899 Other long term (current) drug therapy
CPT/HCPCS: 64721; 82962; J2704; J3490

== ENCOUNTER → 2019-11-25 | Outpatient (CLI) | payer MEDICARE ==
[2019-11-13 09:36] VITALS: BP 173/64
[~2019-11-25] MED LIST changes: -HYDROmorphone 2 MG/ML VIAL IV PRN; -IV RINGERS,LACTATED 1000ML 1,000 ML IV SCH; -LIDOCAINE 1% PF 2 ML VIAL. ID PRN; -MORPHINE SULFATE 2 MG/ML VIAL. IV PRN; -ONDANSETRON PF 4 MG/2 ML VIAL. IV PRN; -PROCHLORPERAZINE 10 MG/2 ML VIAL. IV PRN; -ceFAZolin SODIUM 3 GM in IV DEXTROSE 5% 100ML 100 ML IV PRN; -fentaNYL PF VIAL 100 MCG/2 ML VIAL IV PRN
--- NOTE | 2019-11-26 10:50 | CARD ---
MR#: [id number] Date of Study: 11/25/2019 Ordering Physician: ROB ZENG, Referring Physician: ROB ZENG, Tech: Mita Alfaro APPROVED REPORT EXAM: Two-dimensional and M-mode echocardiogram with Doppler and color Doppler. Other Information Quality : FairHR: 85bpm Technically limited study due to Morbid Obesity INDICATION Atrial Fibrillation RISK FACTORS Hypertension Hyperlipidemia Diabetes 2D DIMENSIONS Left Atrium(2D)3.2 (1.6-4.0cm)IVSd1.4 (0.7-1.1cm) Aortic Root(2D)3.4 (2.0-3.7cm)LVDd6.1 (3.9-5.9cm) LVOT Diameter2.0 (1.8-2.4cm)PWd1.2 (0.7-1.1cm) LVDs2.9 (2.5-4.0cm)FS (%) 51.4 % SV150.8 mlLVEF(%)81.8 (>50%) Aortic Valve AoV Peak Sam.331.7cm/sAoV VTI82.7cm AO Peak GR.44.0mmHgLVOT Peak Sam.115.8cm/s LVOT VTI 29.42cmAO Mean GR.29mmHg JEEVAN (VMAX)0.70ds4DQN (VTI)1.15cm2 AI P 1/2 [id number] Mitral Valve MV E Havuyptn097.0cm/sMV DECEL [id number] MV A Zahdiloa196.7cm/sMV VUZ80ka E/A Ratio0.9MVA (PHT)3.42cm2 TDI E/Lateral E'13.0E/Medial E'13.8 Pulmonary Valve PV Peak Qopvfzac02.8cm/sPV Peak Grad.4mmHg Tricuspid Valve TR P. Yfhntgri534fd/sRAP UNUMHBHS5ulWf TR Peak Gr.41gvHvZXND80tcXy Pulmonary Vein S1 Vnhfyegc05.4cm/sD2 Xszapwcs29.8cm/s LEFT VENTRICLE The Left Ventricle is mildly dilated. There is mild to moderate concentric left ventricular hypertrop hy. The left ventricular systolic function is normal. The Ejection Fraction is 50%. There is normal L V segmental wall motion. Transmitral Doppler flow pattern is Grade I-abnormal relaxation pattern. RIGHT VENTRICLE The right ventricle is normal size. There is normal right ventricular wall thickness. The right ventr icular systolic function is normal. ATRIA The left atrium is borderline dilated. The right atrium size is normal. The interatrial septum is int act with no evidence for an atrial septal defect or patent foramen ovale as noted on 2-D or Doppler i maging. AORTIC VALVE The aortic valve is moderately thickened. Doppler and Color Flow revealed moderate aortic regurgitati on. There is moderate valvular aortic stenosis. Calculated aortic valve area is 1.27 cm2 with maximum pressure gradient of 59 mmHg and mean pressure gradient of 33 mmHg. MITRAL VALVE The mitral valve is moderately thickened. There is no evidence of mitral valve prolapse. There is no mitral valve stenosis. Doppler and Color-flow revealed trace mitral regurgitation. TRICUSPID VALVE The tricuspid valve is not well visualized. Doppler and Color Flow revealed trace tricuspid regurgita tion with an estimated PAP of 29 mmHg. There is no tricuspid valve stenosis. PULMONIC VALVE The pulmonic valve is not well visualized. Doppler and Color Flow revealed trace pulmonic valvular re gurgitation. GREAT VESSELS The aortic root is normal in size. The IVC is dilated. PERICARDIAL EFFUSION There is no evidence of significant pericardial effusion. Critical Notification Critical Value: No <Conclusion> The left ventricular systolic function is normal. The Ejection Fraction is 50%. There is normal LV segmental wall motion. Transmitral Doppler flow pattern is Grade I-abnormal relaxation pattern. Moderate valvular aortic stenosis. Moderate aortic regurgitation. Trace mitral regurgitation. Trace tricuspid regurgitation with an estimated PAP of 29 mmHg. There is no evidence of significant pericardial effusion. Signed by : Rob Zeng, Electronically Approved : 11/26/2019 10:50:26
== END ==
LOC: ECHO 10:51
PROVIDERS: ATTEND Internal Medicine Cardiovascular Disease
DX: I35.1 Nonrheumatic aortic (valve) insufficiency (principal); I48.0 Paroxysmal atrial fibrillation; I51.7 Cardiomegaly
CPT/HCPCS: 93306

== ENCOUNTER → 2021-05-24 | Outpatient (CLI) | payer MEDICARE ==
[2020-05-20 15:44] VITALS: BP 149/80
[~2021-05-24] MED LIST changes: +AMLO-186 PO; +AMLO-187 PO; -AMLO10TA8 PO; -AMLO5TAB10 PO; -BENA40TA3 PO; +BENA40TA74 PO; +FURO-68 PO; +METO-239 PO; +POTA10TA12 PO; +Smz/Tmp 800/160MG PO
--- NOTE | 2021-05-25 14:02 | RAD ---
Transrectal, ultrasound-guided placement of fiducial markers into the prostate Consent: The procedure was explained in its entirety to the patient or the patients designated repres entative by a member of the treatment team, including a discussion of the risks, benefits and commonl y accepted alternatives to the procedure, as well as the expected consequences of no therapy whatsoev er. Discussion of the risks included, but was not limited to, those that are most frequent and thos e that are rare but possibly severe or life-threatening, as well as the possibility of unforeseen com plications. Transrectal ultrasound evaluation demonstrates a large, partially calcified prostate. Exact measureme nts were not obtained. Under direct ultrasound guidance 3 fiducial markers were placed in the prostat e. The needles and a probe removed. No immediate complications were identified. IMPRESSION: Transrectal, ultrasound-guided placement of prostate fiducials Electronically signed by: Arnoldo Rios MD (05/25/2021 1:59 PM) [id number]
== END | disposition home or self-care (01) ==
LOC: US 09:55
PROVIDERS: ATTEND Radiology Radiation Oncology
DX: C61 Malignant neoplasm of prostate (principal); I10 Essential (primary) hypertension; I48.91 Unspecified atrial fibrillation; E78.00 Pure hypercholesterolemia, unspecified; E11.9 Type 2 diabetes mellitus without complications; G47.30 Sleep apnea, unspecified; E66.9 Obesity, unspecified; M19.90 Unspecified osteoarthritis, unspecified site; Z86.73 Personal history of transient ischemic attack (TIA), and cerebral infarction without residual deficits; Z85.828 Personal history of other malignant neoplasm of skin; Z79.899 Other long term (current) drug therapy; Z98.890 Other specified postprocedural states; Z90.49 Acquired absence of other specified parts of digestive tract; Z79.84 Long term (current) use of oral hypoglycemic drugs
CPT/HCPCS: 55876; 76942; 77387; C1819

== ENCOUNTER → 2021-05-31 | Outpatient (CLI) | payer MEDICARE ==
[2020-05-20 15:44] VITALS: BP 149/80
[~2021-05-31] MED LIST changes: +CEPH500C PO
--- NOTE | 2021-05-31 14:17 | RAD ---
INDICATION: Reason: RADIATION THERAPY PLANNING / Spl. Instructions: / History: . COMPARISON: October 2017 CT TECHNIQUE: Axial CT images obtained through the pelvis without contrast. One or more of the following individualized dose reduction techniques were utilized for this examinat ion: 1. Automated exposure control; 2. Adjustment of the mA and/or kV according to patient size; 3 . Use of iterative reconstruction technique. FINDINGS: Severe calcific atherosclerosis. Bilateral hip arthroplasty with associated artifact obscuring portio n of pelvis. Suprapubic catheter is seen with prominence of the wall of the urinary bladder. Fiducial markers are seen at the right side of the prostate. Colonic diverticulosis. Degenerative changes of the spine with multilevel central canal and neural foraminal stenosis. Fat-co ntaining inguinal hernias. IMPRESSION: * Fiducial markers are seen at the right side of the prostate. * Suprapubic catheter with prominence of the urinary bladder wall. * Severe calcific atherosclerosis. Electronically signed by: Ben Babcock MD (05/31/2021 2:15 PM) [id number]
== END ==
LOC: CT 13:00
PROVIDERS: ATTEND Radiology Radiation Oncology
DX: C61 Malignant neoplasm of prostate (principal); K57.30 Diverticulosis of large intestine without perforation or abscess without bleeding; K40.90 Unilateral inguinal hernia, without obstruction or gangrene, not specified as recurrent; M48.00 Spinal stenosis, site unspecified; M47.819 Spondylosis without myelopathy or radiculopathy, site unspecified
CPT/HCPCS: 76380

== ENCOUNTER 2021-06-20 23:10 | Emergency (ER) | payer MEDICARE ==
[~2021-06-20] VITALS: Ht 172.7 cm; Wt 149.0 kg
[~2021-06-20 23:10] MED LIST changes: -CEPH500C PO
[2021-06-20 23:15] VITALS: BP 189/80
[2021-06-21 00:16] LABS: BACTERIA,URINE MANY /HPF (0-FEW); RBC,URINE 20-40 /HPF (0-2); WBC,URINE TNTC /HPF (0-4)
[2021-06-21] MEDS ORDERED: CEPHALEXIN 250 MG CAPSULE. PO ONE (00:30)
--- NOTE | 2021-06-21 00:32 | PHYS DOC ---
Past Medical History Past Medical History: A-Fib, CHF, CVA, Diabetes-Type II, High Cholesterol, Hypertension, Stroke, TIA Past Surgical History: Cholecystectomy, Hip Replacement, Other Additional Past Surgical Histo: "Green light procedure" Smoking Status: Never Smoker Alcohol Use: None Drug Use: None General Adult EDM: Chief Complaint: URINE CATHETER PROBLEM HPI: HPI: Patient is a 75-year-old male with past medical history of adenocarcinoma of the prostate, diabetes mellitus, hypertension, hypercholesterolemia, congestive heart failure, and stroke who presents with chief complaint of dysuria following Suprapubic catheter failure at 2300. Patient reports that he had a suprapubic catheter placed at a urology visit on 06/20/2021. Patient reports inability to urinate and suprapubic tenderness at 2300 on 06/20/2021. Patient reports significant discomfort and reports feels like his bladder is full. Patient denies fever, nausea, vomiting, hematochezia, or hematuria. Patient reports daily medications include Eliquis 5 mg QID, metformin 1000 mg QID, atorvastatin 40 mg QID, glimepiride 40 mg QID, Benzapril 40 mg QID, metoprolol 25 mg BID, aspirin 81 mg QID, and furosemide 20/40 mg QID. Reports he has had a suprapubic catheter for several months. Review of Systems: Review of Systems: Constitutional: Denies fever or chills Eyes: Denies redness or eye pain HENT: Denies nasal congestion or sore throat Respiratory: Denies cough or shortness of breath Cardiovascular: Denies chest pain or palpitations GI: Reports supbapubic abdominal pain/fullness; denies nausea or vomiting : Reports oliguria via catheter malfunction Musculoskeletal: Denies back pain or joint pain Integument: Denies rash or skin lesions Neurologic: Denies headache, focal weakness or sensory changes Complete systems were reviewed and found to be within normal limits, except as documented in this note. Heart Score: C/O Chest Pain: N/A Allergies: Allergies: Allergies Coded Allergies Type Severity Reaction Last Updated Verified No Known Drug Allergies 11/21/17 No Physical Exam: PE: Constitutional: Well developed, obese, mild distress, non-toxic appearance HENT: Normocephalic, atraumatic Eyes: Conjunctiva normal, no discharge Neck: Normal range of motion, supple Lungs & Thorax: No respiratory distress, equal chest rise and fall Abdomen: Soft, suprapubic tenderness, large pannus, suprapubic cath os without discharge or surrounding erythema Skin: Warm, dry, no erythema, no rash Back: No tenderness, no CVA tenderness : Mild tenderness suprapubic region, suprapubic distention noted Extremities: No tenderness, ROM intact, no edema Neurologic: Alert and oriented X 3, no focal deficits noted Psychologic: Affect normal, judgment normal EKG: EKG: [] Radiology/Procedures: Radiology/Procedures: [] Course & Med Decision Making: Course & Med Decision Making Pertinent Lab studies reviewed. (See chart for details) Patient presents with report that his suprapubic catheter had fallen out and now is having suprapubic tenderness and distention. Suprapubic catheter placed with immediate relief. UA obtained with signs of infection. Empiric antibiotic initiated. Patient stable for discharge with outpatient follow-up with PCP/urologist. Discussed findings and plan with patient, who acknowledges understanding and agreement. Danyel Disclaimer: Danyel Disclaimer: This electronic medical record was generated, in whole or in part, using a voice recognition dictation system. Additional Procedures Progress Suprapubic catheter insertion Verbal consent obtained. Time out performed. Hand hygiene utilized. Suprapubic os cleaned with Betadine. Successful placement of suprapubic catheterization performed via a 20-nigerien catheter [id number] balloon. Betadine removed. Catheter secured. Patient tolerated procedure well and without difficulty. Departure Departure Impression: Primary Impression: Complicated urinary tract infection Additional Impression: Suprapubic catheter dysfunction Qualified Codes: T83.010A - Breakdown (mechanical) of cystostomy catheter, initial encounter Disposition: HOME / SELF CARE / HOMELESS Condition: STABLE Referrals: LOS ROJAS (PCP) Patient Instructions: Catheter-Associated Urinary Tract Infection FAQs - CHAU, Suprapubic Catheter Replacement, Care After Scripts Cephalexin (KEFLEX) 500 Mg Capsule 1 CAP PO TID for 10 Days, #30 CAP Prov: DIONI MEDINA DO 06/21/21 DIONI MEDINA DO June 21, 2021 00:32
[2021-06-21] MEDS ORDERED: CEPH500C PO (00:35)
== END 2021-06-21 00:45 | disposition home or self-care (01) ==
LOC: ER 23:10
DX: T83.010A Breakdown (mechanical) of cystostomy catheter, initial encounter (principal); N39.0 Urinary tract infection, site not specified; I48.91 Unspecified atrial fibrillation; I11.0 Hypertensive heart disease with heart failure; I50.9 Heart failure, unspecified; Z86.73 Personal history of transient ischemic attack (TIA), and cerebral infarction without residual deficits; E78.00 Pure hypercholesterolemia, unspecified; Z90.49 Acquired absence of other specified parts of digestive tract; Y92.89 Other specified places as the place of occurrence of the external cause
CPT/HCPCS: 51705; 81001; 87077; 87086; 87186; 99284

== ENCOUNTER → 2021-07-07 | Outpatient (CLI) | payer MEDICARE ==
[2020-05-20 15:44] VITALS: BP_DIAS 80
[2021-06-20 23:15] VITALS: BP_SYST 189
[~2021-07-07] MED LIST changes: +CEPH500C PO
[2021-07-07 12:13] LABS: BASO % 0 % (0-3); EOS # 0.4 x10^3/uL (0.0-0.7); EOS % 6 % (0-3); HEMATOCRIT 35.8 % (39.0-53.0); HEMOGLOBIN 11.6 g/dL (13.0-17.5); LYMPH # 0.4 x10^3/uL (1.0-4.8); LYMPH % 6 % (24-48); MEAN CORPUSCULAR HEMOGLOBIN 26 pg (25-35); MEAN CORPUSCULAR HGB CONC 32 g/dL (31-37); MEAN CORPUSCULAR VOLUME 80 fL (79-100); MONO # 0.7 x10^3/uL (0.0-1.1); MONO % 11 % (0-9); NEUT # 4.7 x10^3/uL (1.8-7.7); NEUT % 77 % (31-73); PLATELET COUNT 192 x10^3/uL (140-400); RED CELL DISTRIBUTION WIDTH 21.3 % (11.5-14.5); WHITE BLOOD COUNT 6.1 x10^3/uL (4.0-11.0)
[2021-07-07 12:48] LABS: CREATININE 1.5 mg/dL (0.7-1.3); GFR 45.4; POTASSIUM 4.6 mmol/L (3.5-5.1)
[2021-07-07 12:54] LABS: ALBUMIN 3.2 g/dL (3.4-5.0); ALBUMIN/GLOBULIN RATIO 0.8 (1.0-1.7); TOTAL BILIRUBIN 0.4 mg/dL (0.2-1.0); TOTAL PROTEIN 7.4 g/dL (6.4-8.2)
[2021-07-07 15:13] LABS: ANISOCYTOSIS MOD; PLT ESTIMATE ADEQUATE (ADEQUATE)
[2021-07-07 15:14] LABS: OVALOCYTES FEW
[2021-07-09 13:10] LABS: PSA FREE 0.08 ng/mL; PSA TOTAL 0.4 ng/mL (0.0-4.0)
[2021-07-10 10:27] LABS: TESTOSTERONE FREE 0.09 ng/dL (5.00-21.00)
== END ==
LOC: ONCLAB 11:55
PROVIDERS: ATTEND Internal Medicine Hematology & Oncology
DX: C61 Malignant neoplasm of prostate (principal)
CPT/HCPCS: 36415; 80053; 84153; 84154; 84402; 84403; 85025